=== PATIENT | male | born 1980 | race Caucasian/White ===

== ENCOUNTER 2025-04-17 09:51 | Outpatient (CLI) | payer OTHER, SELFPAY ==
--- OUTSIDE RECORDS SUMMARY | 2025-04-17 10:16 | XMS_ITS | Encounter Summary ---
Author Organization [facility] Healthcare Address [address] [place] [address] Care Team Providers Care Hydraulic Elevator Constructor Name Role Phone Antionette Valentine DO Primary Care Provider [phone] Reason for Visit * Diagnostic Imaging (Routine) - Closed Specialty Diagnoses / Procedures Referred By Kenny rhodes Referred To Contact Diagnoses Left shoulder pain, unspecified chronicity Procedures XR Shoulder Left 2 or More Views Ari Siddiqui PA [address] [place] [address] [address] [place] [address] Phone: tel: fax: Referral ID Status Reason Start Date Expiration Date Visits Re quested Visits Authorized [id number] Closed 06/25/2023 07/24/2024 1 1 Encounter Details Date Type Department Care Team (Late st Contact Info) Description 06/25/2023 7:46 AM CDT Hospital Encounter [facility] Medical Group Orthopedics and Sports Medicine [address] [facility] [address] [place] [id number] Social History Tobacco Use Types Packs/Day Years [...] on file Legal Sex Male 11:43 AM PRINCIPAL SECURITY ARCHITECT Gender Identity Male 10/07/2021 8:00 AM PRINCIPAL SECURITY ARCHITECT Sexual Orientation Straight 10/07/2021 8: 00 AM PRINCIPAL SECURITY ARCHITECT documented as of this encounter Functional Status * Audit-C Score Answer Date of Assessment Author 0 01/12/2025 3:56 PM CDT Kely Hendrickson MA * Question Answer Date of Assessment Author Q1: How often do you have a drink containing alcohol? Never 01/12/2025 3:56 PM CDT Talia Hendrickson MA Q2: How many drinks containing alcohol do you have on a typical day when you are drinking? Patient does not drink 01/12/2025 3:56 PM CDT Kely Hendrickson MA Q3: How often do you have six or more drinks on one occasion? Never 01/12/2025 3:56 PM CDT Talia Hendrickson MA documented as of this encounter Plan of [...] glenohumeral joint space is noted consistent with [id number] arthritic changes. A type 1 acromion is noted that a hypertrophic distal clavicle is noted to be impinging in the subacromial space. Ari ANDERSON IMG XR PROCEDURES Final Res ult documented in this encounter Visit Diagnoses Not on filedocumented in this encounter Care Teams Hydraulic Elevator Constructor Relationship Specialty [place] [address] [facility] [address] [place] [address] PCP - General Internal Medicine 06/27/21 documented as of this encounter
--- OUTSIDE RECORDS SUMMARY | 2025-04-17 10:16 | XMS_ITS | Clinical Summary ---
Author Organization [facility] Address [address] [place] [address] Phone Care Team Providers Care Pan Reclaim Processor Name Role Phone Antionette Valentine DO Primary Care Provider [phone] Allergies No known active allergies Social History Tobacco Use Types Packs/Day Years Used Date Smoking Tobacco: Never Assessed Sex and Gender Information Value Date Recorded Sex Assigned at Not on file Legal Sex Male 10:38 PM CDT Gender Identity Not on file Sexual Orientation Not on file Last Filed Vital Signs Vital Sign Reading Time Taken Comments Blood Pressure 152/87 07/05/2022 12:10 AM CDT Pulse 90 07/05/2022 12:10 AM CDT Temperature 36.3 C (97.3 F) 07/05/2022 12:10 AM CDT Respiratory Rate 17 07/05/2022 12:10 AM CDT Oxygen Saturation 98% 07/05/2022 12:10 AM CDT Inhaled Oxygen Concentration - - Weight 127 kg (280 lb) 07/04/2022 10:47 PM CDT Height 177.8 cm (5' 10) 07/04/2022 10:47 PM CDT Body Mass Index 40.18 07/04/2022 10:47 PM CDT Plan of Treatment Health Maintenance Due Date Last Done Comments Hepatitis C Virus (HCV) Screening 1979 Human Papillomavirus (HPV) Immunization (1 - Male 3-dose series) 1994 Hepatitis B Immunization (1 of 3 - 19+ 3-dose series) 1998 SARS-COV-2 Immunization ( season) 2024 06/23/2022, 06/29/2021, 12/22/2020, Additional history exists Cologuard 2024 Immunochemical Fecal Occult Blood 2024 Influenza Immunization (#1) 05/14/202506/13, 06/15/2021, 06/12/2021, Additional history exists Colonoscopy 05/14/2032 05/14/2022, 05/14/2022 Colorectal Cancer Screening 05/14/2032 Respiratory Syncytial Virus (RSV) Immunization (Adult) (1 - 1-dose 75+ series) 2054 DTaP/Tdap/Td Immunization Discontinued 2015, 08/03/2013, 01/19/2003, Additional history exists TdaP Immunization Completed 08/29/2016, 08/03/2013 Pneumococcal Immunization Combined Aged Out 09/23/2021, 06/06/2013 No longer eligibl e based on patient's age to complete this topic Meningococcal Immunization (ACWY) Aged Out No longer eligible based on patient's age to complete this topic Rotavirus Immunization Aged Out No lo nger eligible based on patient's age to complete this topic Insurance Care Teams Pan Reclaim Processor Relationship Specialty [place] [address] [address] PCP - General Internal Medicine 07/04/22
--- OUTSIDE RECORDS SUMMARY | 2025-04-17 10:16 | XMS_ITS | Clinical Summary ---
Author Organization [facility] D Address [address] [place] [address] Care Team Providers Care Teacher Private Name Role Phone Francisco Valentinesey Dexter FOSTER Primary Care Provider [phone] Allergies No known active allergies Medications lisinopril (PRINIVIL,ZEST RIL) 10 mg tablet Take 1 tablet (10 mg total) by mouth daily with dinner Active omeprazole (PriLOSEC) 20 mg capsule Take 1 capsule (20 mg total) by mouth daily with dinner Active escitalopram (LEXAPRO) 10 mg tablet Take 1 tablet (10 mg total) by mouth daily Active acetaminophen (TYLENOL) 500 mg tablet Take 2 tablets (1,000 mg total) by mouth every 6 hours as needed Active melatonin 5 mg tablet 1 tablet (5 mg total) Active multivitamin tablet Take 1 tablet by mouth 3 (three) times a day with meals Active albuterol HFA (PROVENTIL HFA,VENTOLIN HFA,PROAIR HFA) 90 mcg/actuation inhaler 0 Active atorvastatin (LIPITOR) 40 mg tablet Take 1 tablet (40 mg total) by mouth daily 0 Active benzonatate (TESSALON) 200 mg capsule Take 1 capsule (200 mg total) by mouth 3 (three) times a day as needed 0 Active blood glucose diagnostic strip Check blood sugar before meals as directed. Three times daily 2 Active blood-glucose meter kit Check blood sugar before meals as directed 2 Active lancets [facility] [place] Check blood sugar 3 times a day prior to meals as directed. 3 Active metFORMIN (GLUCOPHAGE) 500 mg tablet 0 Active Ozempic 1 mg/dose (4 mg/3 mL) pen injector injection INJECT 1MG SUBCUTANEOUSLY EVERY 7 DAYS Active cyclobenzaprin e (FLEXERIL) 10 mg tablet Take 1 tablet (10 mg total) by mouth nightly as needed for muscle spasms 30 tablet 1 5 Active Active Problems Problem Noted Date Diagnosed Date Type 2 diabetes mellitus wit h hyperglycemia, without long-term current use of insulin 09/03/2023 LUQ abdominal pain 12/30/2021 Bronchitis 10/04/2018 Assessment & Plan (10/04/2018 6:50 PM COPY COORDINATOR): Take your antibiotic as directed You may take a cough suppressant to calm your cough (dayquil, delsym, or nyquil) If your cough is productive or you have tight chest congestion with thick mucus- you can use a cough expectorant like Mucinex Benadryl/Zyrtec can be used to dry up a runny nose along with a nasal spray like azelastine or mometasone.. The use of Chlorpheniramine (antihistamine) plus pseudoephedrine (decongestant) has been proven to be helpful. Avoid environmental triggers and allergen Drink plenty of fluids and get plenty of rest Tylenol/Motrin for pain/fever If you are not better in the next 5 days, follow up w PCP. Essential hypertension 04/26/2018 Obstructive sleep apnea syndrome in adult 2015 Gastroesophageal reflux disease without esophagi tis 02/03/2016 Obesity 11/05/2015 Daytime somnolence 11/05/2015 Fever, unspecified 10/11/2012 Pure hypercholesterolemia 08/25/2011 Pain in joint, ankle and foot 08/18/2011 Chest pain, unspecified 07/16/2011 Acute pharyngitis 04/21/2007 Acute upper respiratory infection 11/18/2006 Disorder of skin or subcutaneous tissue 11/19/19 07 Encounters Date Type Department Care Team Description 03/01/2025 Results Follow-Up [facility] Medicine [address] [place] [id number] Ari Siddiqui PA MRI Cervical Spine WO Contrast 02/28/2025 5:49 PM CDT - 02/28/2025 11:59 PM CDT Hospital Encounter [facility] [address] [place] [address] Cervical radiculopathy Discharge Disposition: Discharge to home or self care 02/16/2025 3:45 PM CDT Office Visit [facility]opedics and [facility] Medicine [address] [facility] [address] [place] [address] Ari Siddiqui PA Cervical radiculopathy (Primary Dx) from Last 3 Months Surgical History Surgery Date Site/Laterality Comments TYMPANOSTOMY TUBE PLACEMENT tubes in ears HERNIA REPAIR Hernia repair VASECTOMY Medical History Medical History Date Comments Hypertension Migraine Neuropathy Back pain Family History Medical History Relation Name Comments Cancer Other 1 Family history of Cancer, unknown; Arthritis Other 2 Family history of Arthritis; Alcohol abuse Other 3 Family history of Alcoholism; Coronary artery disease Other 4 Fami ly history of Coronary artery disease; Mental illness Other 5 Family histor y of Mental illness; Stroke Other 6 Family history of Stroke; Relation Name Status Comments Other 1 Other 2 Other 3 Other 4 Other 5 Other 6 Social History Tobacco Use Types Packs/Day Years [...] on file Legal Sex Male 11:43 AM COPY COORDINATOR Gender Identity Male 10/07/2021 8:00 AM COPY COORDINATOR Sexual Orientation Straight 10/07/2021 8: 00 AM COPY COORDINATOR Obstetrics History Last Filed Vital Signs Vital Sign Reading Time Taken Comments Blood Pressure 134/89 02/16/2025 11:28 AM CDT Pulse 84 02/16/2025 11:28 AM CDT Temperature 37.4 C (99.4 F) 11/22/2018 3:48 PM CDT Respiratory Rate 20 11/22/2018 3:48 PM CDT Oxygen Saturation 95% 04/25/2019 3:12 PM CDT Inhaled Oxygen Concentration - - Weight 123.8 kg (273 lb) 02/16/2025 11:28 AM CDT Height 175.3 cm (5' 9) 02/16/2025 11:28 AM CDT Body Mass Index 40.32 02/16/2025 11:28 AM CDT Plan of Treatment Health Maintenance Due Date Last Done Comments Albumin Creatinine Ratio, Urine 1979 Colon Cancer Screening-Colonoscopy 1979 Depression Screening 1979 Hepatitis C Screening 1979 Dilated Eye Exam 1979 Foot Exam 1979 Lipid Panel 1979 Hepatitis B Screening 1997 Regular Well Visit/Exam 18-64 1997 HPV Vaccines (1 - 3-dose SCD M series) 2006 eGFR 11/17/2018 11/17/2017 Influenza Vaccine (#1) 2025 , 07/02/2020, 07/04/2019, Additional history exists Hemoglobin A1C 06/01/2025 11/29/2024, 11/04/2022, 09/30/2021, Additional history exists DTaP/Tdap/Td Vaccine (3 - Td or Tdap) 08/29/2026 08/29/2016, 08/03/2013, 01/19/2003, Additional history exists Pneumococcal vaccine <65 (3 of 3 - PCV20 or PCV21) 2029 09/23/2021, 06/06/2013, 06/06/2013 Procedures Procedure Name Priority Date/Time Associated Diagnosis Comments MRI CERVICAL SPINE WO CONTRAST Schedule Routine, Read Routine (OP Routine) 02/28/2025 6:30 PM CDT Cervical radiculopathy EGFR STAT 11/17/2017 4:00 PM COPY COORDINATOR from Last 3 Months or Most Recently Relevant to Health Maintenance Results * MRI Cervical Spine WO Contrast (02/28/2025 6:30 PM CDT) Anatomical Region Laterality Modality Spine N/A Magnetic Resonan ce 03/01/2025 10:4 1 AM CDT Narrative 03/01/2025 10:51 AM CDT EXAM DESCRIPTION: MRI CERVICAL SPINE WO CONTRAST REASON FOR STUDY: pain 2 month neck pain that travels down his left arm /no improvement with pt/ no trauma/ no injury TECHNIQUE: Sagittal and Axial imaging includes T1, T2, STIR and gradient echo sequences. COMPARISON: None available. FINDINGS: Multiple of the sequences are degraded by artifact despite multiple repeat attempts. ALIGNMENT: Straightening of the cervical lordosis. Mild retrolisthesis of C4 on C5. VERTEBRAE: No acute compression fracture in the cervical spine. If trauma is suspected then a CT has higher sensitivity for spinal fractures and can be obtained as clinically indicated. Multilevel endplate degenerative changes and marginal spur formation. DISCS: Diffuse disc desiccation and height loss. HARDWARE: None in the spine. CORD: No definite T2 hyperintense cord signal alteration is reproduced on 2 separate sequences. INDIVIDUAL LEVELS: C2-C3: No significant disc bulge or spinal canal stenosis. Uncovertebral spurring and facet arthropathy with mild neural foraminal narrowing. C3-C4: Posterior disc osteophyte complex and superimposed disc protrusion indents the ventral cord. Thickened ligamentum flavum. Moderate spinal canal stenosis. Uncovertebral spurring and facet arthropathy with moderate left and mild right neural foraminal narrowing. C4-C5: Central disc protrusion indents the ventral cord. Thickened ligamentum flavum. Moderate spinal canal stenosis. Uncovertebral spurring and facet arthropathy with [id number] neural foraminal narrowing. C5-C6: Posterior disc protrusion eccentric to the right indents the right ventral cord. Thickened ligamentum flavum. Nsmp-sx-ewvuqeqr right ventral spinal canal stenosis. Uncovertebral spurring and facet arthropathy with [id number]-jv-llmhshii right and moderate left neural foraminal narrowing. C6-C7: Posterior disc osteophyte complex and superimposed disc protrusion indents the ventral cord. Thickened ligamentum flavum. Moderate to severe spinal canal stenosis. Uncovertebral spurring and facet arthropathy with moderate to severe left and moderate right neural foraminal narrowing. C7-T1: No significant disc bulge or spinal canal stenosis. Uncovertebral spurring and facet arthropathy with mild neural foraminal narrowing. UPPER THORACIC: Incompletely imaged. No high-grade spinal canal stenosis. IMPRESSION: 1. Multilevel cervical disc degeneration with thickened ligamentum flavum, uncovertebral spurring and facet arthropathy as described. Spinal canal stenosis from C3-C4 through C6-C7 ranging up to moderate to severe. 2. Varying degrees of bilateral neural foraminal narrowing and additional findings as above. THIS IS AN ELECTRONICALLY VERIFIED FINAL REPORT 03/01/2025 10:51 AM - Electronically signed by Carlo Harrison D.O. AP: AP Report ID: [id number] Reading Location: [id number] Procedure Note Carlo Harrison, DO - 03/01/2025 EXAM DESCRIPTION: MRI CERVICAL SPINE WO CONTRAST REASON FOR STUDY: pain 2 month neck pain that travels down his left arm /no improvement with pt/no trauma/ no injury TECHNIQUE: Sagittal and Axial imaging includes T1, T2, STIR and gradientecho sequences. COMPARISON: None available. FINDINGS: Multiple of the sequences are degraded by artifact despite multiplerepeat attempts. ALIGNMENT: Straightening of the cervical lordosis. Mild retrolisthesisof C4 on C5. VERTEBRAE: No acute compression fracture in the cervical spine. Iftrauma is suspected then a CT has higher sensitivity for spinal fractures and canbe obtained as clinically indicated. Multilevel endplate degenerativechanges and marginal spur formation. DISCS: Diffuse disc desiccation and height loss. HARDWARE: None in the spine. CORD: No definite T2 hyperintense cord signal alteration is reproducedon 2 separate sequences. INDIVIDUAL LEVELS: C2-C3: No significant disc bulge or spinal canal stenosis. Uncovertebral spurring and facet arthropathy with mild neural foraminal narrowing. C3-C4: Posterior disc osteophyte complex and superimposed disc protrusion indents the ventral cord. Thickened ligamentum flavum. Moderate spinalcanal stenosis. Uncovertebral spurring and facet arthropathy with moderate leftand mild right neural foraminal narrowing. C4-C5: Central disc protrusion indents the ventral cord. Thickenedligamentum flavum. Moderate spinal canal stenosis. Uncovertebral spurring and facet arthropathy with [id number]-pt-tlmqktdw neural foraminal narrowing. C5-C6: Posterior disc protrusion eccentric to the right indents the right ventral cord. Thickened ligamentum flavum. Njve-pa-ohftlgai rightventral spinal canal stenosis. Uncovertebral spurring and facet arthropathy with xnqh-xn-nscgicne right and moderate left neural foraminal narrowing. C6-C7: Posterior disc osteophyte complex and superimposed disc protrusion indents the ventral cord. Thickened ligamentum flavum. Moderate tosevere spinal canal stenosis. Uncovertebral spurring and facet arthropathy with moderate to severe left and moderate right neural foraminal narrowing. C7-T1: No significant disc bulge or spinal canal stenosis. Uncovertebral spurring and facet arthropathy with mild neural foraminal narrowing. UPPER THORACIC: Incompletely imaged. No high-grade spinal canalstenosis. IMPRESSION: 1. Multilevel cervical disc degeneration with thickened ligamentumflavum, uncovertebral spurring and facet arthropathy as described. Spinal canal stenosis from C3-C4 through C6-C7 ranging up to moderate to severe. 2. Varying degrees of bilateral neural foraminal narrowing andadditional findings as above. THIS IS AN ELECTRONICALLY VERIFIED FINAL REPORT 03/01/2025 10:51 AM - Electronically signed by Carlo Harrison D.O. AP: AP Report ID: [id number] Reading Location: [place] [address] [facility] MRI PROCEDURES Final Re sult * eGFR (11/17/2017 4:00 PM COPY COORDINATOR) eGFR 100 mL/min/1.7 3 m2 [facility] Comment: Interpretive Data Reference Interval Normal >/= 90 mL/min/1.73m2 Mildly decreased* 60 - 89 mL/min/1.73m2 Mildly to moderately decreased 45 - 59 mL/min/1.73m2 Moderately to severely decreased 30 - 44 mL/min/1.73m2 Severely decreased 15 - 29 mL/min/1.73m2 Kidney Failure < 15 mL/min/1.73m2 *Relative to young adult level If -Polish multiply value by 1.16. Estimated glomerular filtration rate is determined by the CKD-EPI equation recommended by the National Kidney Foundation (KDIGO 2012 Clinical Practice Guideline for the Evaluation and Management of Chronic Kidney Disease. Kidney Intnl Suppl Sep 2012;3:1). The CKD-EPI equation should not be used for patients with unstable renal function and has not been validated in children and those over 70. Current interpretive data was last reviewed 2016. Blood specimen (specimen) 11/17/2017 4:00 PM COPY COORDINATOR 11/17/2017 4:10 PM COPY COORDINATOR Narrative [facility] - 11/17/2017 4:42 PM COPY COORDINATOR Jono Frye MD LAB BLOOD ORDERABLES nal Result [facility] [address] Department [place] [address] from Last 3 Months or Most Recently Relevant to Health Maintenance Insurance [employer] Care Teams Teacher Private Relationship Specialty [place] [id number] [phone] PCP - General Internal Medicine 06/27/21
--- OUTSIDE RECORDS SUMMARY | 2025-04-17 10:16 | XMS_ITS | Clinical Summary ---
Author Organization [facility] Address [address] [place] [address] Care Team Providers Care Insurance Professional Name Role Phone Antionette Valentine DO Primary Care Provider [phone] Allergies No known active allergies Medications fluticasone (FLONASE) 50 mcg/spray [place], Suspension Administer 2 Sprays in each nostril daily. 16 Gram 5 5 Active multivitamin (FLINTSTONES) Tablet, Chewable Take 1 Tablet by mouth daily. Active ascorbic acid, vitamin C, (VITAMIN C) 1,000 mg Tablet Take 1,000 mg by mouth daily. Active loratadine (CLARITIN) 10 mg tablet 1 Active albuterol sulfate 90 mcg/Actuation inhaler 1 Active omeprazole (PriLOSEC) 20 mg Capsule, Delayed Release(E.C.)Ind ications:Gastroe sophageal reflux disease without esophagitis TAKE 1 CAPSULE BY MOUTH TWICE A DAY 180 Capsule 1 2 Active Blood-Glucose Meter (Blood Glucose Monitoring) Kit Check blood sugar before meals as directed 1 Kit 2 Active lancetsIndicatio ns:Type 2 diabetes mellitus with hyperglycemia, without long-term current use of insulin ([facility]) Check blood sugar 3 times a day prior to meals as directed. 100 Each 10 3 Active acetaminophen (TYLENOL) 500 mg tablet Take 1,000 mg by mouth. 3 Active blood sugar diagnostic (Blood Glucose Test) Strip Check blood sugar before meals as directed. Three times daily 100 Strip 8 4 Active melatonin 5 mg Tablet 5 mg. 3 Active FIBER ORAL Take by mouth. Acti ve atorvastatin (LIPITOR) 40 mg tabletIndication s:Type 2 diabetes mellitus without complication, without long-term current use of insulin ([facility]) Take 1 tablet by mouth daily. 100 Tablet 3 5 Active lisinopriL (PRINIVIL) 40 mg tabletIndication s:Essential hypertension Take 1 tablet by mouth daily. 100 Tablet 3 5 Active semaglutide (Ozempic) 1 mg/dose (4 mg/3 mL) Pen Injector Inject 1 mg by subcutaneous injection every 7 days. 9 mL 3 5 Active metFORMIN (GLUCOPHAGE) 1,000 mg tabletIndication s:Type 2 diabetes mellitus without complication, without long-term current use of insulin (CMS/HCC) Take 1 tablet by mouth twice daily with meals. 200 Tablet 3 5 Active buPROPion HCL (WELLBUTRIN XL) 150 mg Extended Release 24 hour tablet Take 1 tablet by mouth daily in the morning. 90 Tablet 2 5 Active escitalopram oxalate (LEXAPRO) 20 mg tabletIndication s:Morbid obesity with body mass index of 40.0-49.9 (CMS/HCC) Take 1 tablet by mouth daily. 100 Tablet 3 5 Active Active Problems Problem Noted Date Diagnosed Date LUQ abdominal pain 12/30/2021 Family history of colon canc er requiring screening colonoscopy 12/30/2021 Tobacco use 09/23/2021 Bronchitis 10/04/2018 Overview (07/21/2022): Last Assessment & Plan: Take your antibiotic as directed You may [...] days, follow up w PCP. Essential hypertension 11/23/2016 Gastroesophageal reflux disease without esophagi tis 02/03/2016 Obstructive sleep apnea syndrome 02/03/2016 Fever, unspecified 10/11/2012 Pure hypercholesterolemia 08/25/2011 Pain in joint, ankle and foot 08/18/2011 Other malaise and fatigue 07/16/2011 Other and unspecified hyperlipidemia 07/16/2011 Chest pain, unspecified 07/16/2011 Acute pharyngitis 04/21/2007 Unspecified disorder of skin and subcutaneous ti ssue 11/18/2006 Acute upper respiratory infections of unspecifie d site 11/18/2006 Type 2 diabetes mellitus wit h hyperglycemia, without long-term current use of insulin Resolved Problems Problem Noted Date Diagnosed Date Resolved Date Severe obesity (BMI 35.0-39. 9) with comorbidity 11/12/2020 11/02/2023 Prediabetes 02/28/2018 09/23/2021 Morbid obesity with body mas s index of 40.0-49.9 11/22/2017 11/02/2023 Encounters Date Type Department Care Team Description 03/28/2025 External Device Data [facility] ABSTRACTION Provider, Abstract 03/27/2025 External Device Data [facility] ABSTRACTION Provider, Abstract 02/28/2025 External Device Data [facility] ABSTRACTION Provider, Abstract 02/27/2025 External Device Data [facility] ABSTRACTION Provider, Abstract 02/07/2025 [facility] [address] [address] Antionette Valentine A, DO Morbid obesity with body mass index of 40.0-49.9 ([facility]/HCC) from Last 3 Months Immunizations Immunization Administration Dates Next Due (ADACEL/BOOSTRIX)(10 YR UP) TDAP VACCINE, 0.5ML, IM 08/29/2016,08/03/2013 (HAVRIX/VAQTA)(12 MO-18 YRS) HEPATITIS A VACCINE 0.5 ML PED/ADOL 2 DOSE, IM 04/22/2000,10/02/1999 (PFIZER)(12 YR UP) COVID-19 VACCINE - EMERGENCY USE AUTHORIZATION, MRNA, [id number](PF) 30 MCG/0.3 ML IM SUSP 06/29/2021,12/22/2020,11/26/2020 (PNEUMOVAX 23)(50 YRS UP) PN EUMOCOCCAL POLYSACCHARIDE (PPV23) 0.5 ML, IM 09/23/2021 (PREVNAR 13)(6 WKS UP) PNEUM OCOCCAL CONJUGATE (PCV13) 0.5 ML, IM 06/06/2013 (TDVAX)(7 YRS UP) TETANUS AN D DIPHTHERIA TOXOIDS, ADSORBED (2 LF OF TETANUS TOXOID AND 2 LF OF DIPHTHERIA TOXOID), 0.5ML (PF), IM 01/19/2003,03/31/1993 INFLUENZA VACCINE QUADRIVALE NT 3 YR UP PF IM 06/12/2018 INFLUENZA VACCINE QUADRIVALE NT 6 MOS UP CELL DERIVED PF IM 07/04/2019 INFLUENZA VACCINE QUADRIVALE NT 6 MOS UP PF IM 07/02/2020 Influenza Seasonal Unspecifi ed Formulation IM 06/12/2021,08/29/2016,06/27/2015,06/08,06/06/2013 Rabies Vaccine, Unspecified Formulation 12/05/2003,11/07/2003 Family History Medical History Relation Name Comments Hypertension Brother Hypertension Father Prostate Cancer Father Other Maternal Cousin pre cancerou s polyps age 40 Colon Cancer Maternal Grandfather Colon Cancer Maternal Grandmother Healthy Mother Other Mother afib, hx valve replacement Relation Name Status Comments Brother Father Alive Maternal Cousin Maternal Grandfather Maternal Grandmother Mother Alive Social History Tobacco Use Types Packs/Day Years Used Date Smoking Tobacco: Former Cigarettes S tarted: 03/10/2012 Smokeless Tobacco: Never Alcohol Use Standard Drinks/Week Comments Yes 0 (1 standard drink = 0.6 oz pur e alcohol) monthly Sex and Gender Information Value Date Recorded Sex Assigned at Male 04/30/2023 6:35 PM CDT 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 Gender Identity Male 04/30/2023 6:35 PM CDT Sexual Orientation Straight 04/30/2023 6: 35 PM CDT Occupation Industry Job Start Date Job End Date Not on file Not on file Not on file Not on file Last Filed Vital Signs Vital Sign Reading Time Taken Comments Blood Pressure 124/80 11/29/2024 2:15 PM CDT Pulse 86 11/29/2024 2:15 PM CDT Temperature 36.2 C (97.1 F) 11/29/2024 2:15 PM CDT Respiratory Rate 18 05/14/2022 1:23 PM CDT Oxygen Saturation 97% 11/29/2024 2:15 PM CDT Inhaled Oxygen Concentration - - Weight 123.8 kg (273 lb) 11/29/2024 2:15 PM CDT Height 175.3 cm (5' 9) 11/29/2024 2:15 PM CDT Body Mass Index 40.32 11/29/2024 2:15 PM CDT Plan of Treatment Upcoming Encounters Date Type Department Care Team (Late st Contact Info) Description 07/02/2025 4:00 PM CDT Office Visit [facility] [id number] [address] [place] [id number] [address] Health Maintenance Due Date Last Done Comments HPV VACCINES (1 - Male 3-dos e series) 1994 DIABETES ANNUAL RETINAL EXAM 1997 HEPATITIS B VACCINES (1 of 3 - 19+ 3-dose series) 1998 COVID-19 Vaccine (2023-2 5 season) 2024 06/29/2021, 12/22/2020, 11/26/2020 FIT-DNA Q 3 years 2024 FIT/FOBT Q 1 year 2024 Flex Sig/CT Colonography Q 5 years 2024 INFLUENZA VACCINE (#1) 2025 , 07/02/2020, 07/04/2019, Additional history exists DIABETES HBA1C Q 6 MONTHS 06/01/20252024, 11/02/2023, 11/02/2023, Additional history exists DIABETES ANNUAL FOOT EXAM 11/29/20252024, 04/29/2023, 07/21/2022, Additional history exists DIABETES MICROALBUMIN ANNUAL SCREEN 11/29/2025 11/29/2024, 11/02/2023, 07/21/2022, Additional history exists DIABETES: A1C (Auto Order) 11/29/202511/29, 11/02/2023, 11/02/2023, Additional history exists LDL CHOLESTEROL ANNUAL 11/29/2025 , 04/29/2023, 07/21/2022, Additional history exists DTAP/TDAP/TD VACCINES (4 - T d or Tdap) 08/29/2026 08/29/2016, 08/03/2013, 01/19/2003, Additional history exists COLORECTAL SCREENING 05/14/2027 05/14/2022, 05/14/2022, 05/14/2022, Additional history exists Colorectal Cancer Screening 05/14/2027 Preventative Visit- Commercial Completed 0 11/29/2024, 04/29/2023, 04/29/2023, Additional history exists Procedures Procedure Name Priority Date/Time Associated Diagnosis Comments LIPID PANEL Routine 11/29/2024 3:00 PM CDT Encounter for routine adult health examination without abnormal findings Type 2 diabetes mellitus with hyperglycemia, without long-term current use of insulin (CMS/HCC) Pure hypercholesterolemia Essential hypertension Gastroesophageal reflux disease without esophagitis Obstructive sleep apnea syndrome HEMOGLOBIN A1C Routine 11/29/2024 3:00 PM CDT Encounter for routine adult health examination without abnormal findings Type 2 diabetes mellitus with hyperglycemia, without long-term current use of insulin (CMS/HCC) Pure hypercholesterolemia Essential hypertension Gastroesophageal reflux disease without esophagitis Obstructive sleep apnea syndrome MICROALBUMIN/CREATI NINE RATIO, RANDOM UR Routine 11/29/2024 2:56 PM CDT Encounter for routine adult health examination without abnormal findings Type 2 diabetes mellitus with hyperglycemia, without long-term current use of insulin (CMS/HCC) Pure hypercholesterolemia Essential hypertension Gastroesophageal reflux disease without esophagitis Obstructive sleep apnea syndrome COLONOSCOPY REPORT 05/14/2022 1: 06 PM CDT from Last 3 Months or Most Recently Relevant to Health Maintenance Results * (ABNORMAL) HEMOGLOBIN A1C (11/29/2024 3:00 PM CDT) HEMOGLOBIN A1C 6.0(H) <5.7 % of total Hgb [facility] Comment: For someone without known diabetes, a hemoglobin A1c value between 5.7% and 6.4% is consistent with prediabetes and should be confirmed with a follow-up test. For someone with known diabetes, a value <7% indicates that their diabetes is well controlled. A1c targets should be individualized based on duration of diabetes, age, comorbid conditions, and other considerations. This assay result is consistent with an increased risk of diabetes. Currently, no consensus exists regarding use of hemoglobin A1c for diagnosis of diabetes for children. ESTIMATED AVERAGE GLUCOSE (MG/DL) 126 mg/dL [facility] ESTIMATED AVERAGE GLUCOSE (MMOL/L) 7.0 mmol/L [facility] Comment: Test Performed at: [place] [address] [address] [id number] RadhaTaylorfredy Adore Blood 11/29/2024 3:00 PM CDT 11/29/2024 3:00 PM CDT us Jesus Barraza NP CHEMISTRY ORDERABLES Final Resu lt [facility] [phone] [place] [address] [address] [phone] * (ABNORMAL) LIPID PANEL (11/29/2024 3:00 PM CDT) [facility] CHOLESTEROL 145 <200 mg/dL [facility] HDL 53 > OR = 40 mg/dL [facility] TRIGLYCERIDE 179(H) <150 mg/dL [facility] LDL CALCULATED 66 mg/dL (calc) [facility] Comment: Reference range: <100 Desirable range <100 mg/dL for primary prevention; <70 mg/dL for patients with CHD or diabetic patients with > or = 2 CHD risk factors. LDL-C is now calculated using the Cherie calculation, which is a validated novel method providing better accuracy than the Friedewald equation in the estimation of LDL-C. Donell FERNANDEZ et al. MAJOR. 2013;310(19): 1213-7646 (http://education.mDialog/faq/DLR167) CHOL/HDL RATIO 2.7 <5.0 (calc) [facility] NON-HDL CHOLESTEROL 92 <130 mg/dL (calc) [facility] Comment: For patients with diabetes plus 1 major ASCVD risk factor, treating to a non-HDL-C goal of <100 mg/dL (LDL-C of <70 mg/dL) is considered a therapeutic option. Test Performed at: [facility] [address] [place] [address] Demetrius Flower Blood 11/29/2024 3:00 PM CDT 11/29/2024 3:00 PM CDT Jesus Barraza NP CHEMISTRY ORDERABLES Final Resu lt [facility] [phone] [place] [address] [place] [address] * MICROALBUMIN/CREATININE RATIO, RANDOM UR (11/29/2024 2:56 PM CDT) Creatinine, Urine 76 20 - 320 mg/dL [facility] MICROALBUMIN, URINE 0.2 See Note: mg/dL [facility] Comment: Reference Range: Reference Range Not established MICROALBUMIN/CREAT RATIO, UR 3 <30 mg/g creat [facility] Comment: The ADA defines abnormalities in albumin excretion as follows: Albuminuria Category Result (mg/g creatinine) Normal to Mildly increased <30 Moderately increased 30-299 Severely increased > OR = 300 The ADA recommends that at least two of three specimens collected within a 3-6 month period be abnormal before considering a patient to be within a diagnostic category. Test Performed at: [facility] [address] [place] [address] Demetrius Flower MD Urine URINE SPECIMEN OBTAINED BY CLEAN CATCH PROCEDURE / Unknown 11/29/2024 2:56 PM CDT 11/29/2024 2:59 PM CDT Jesus Madi BUSINESS COORDINATOR URINE ORDERABLES Final Result [facility] [phone] [facility] [address] [address] [facility] [place] [phone] * COLONOSCOPY REPORT (05/14/2022 1:06 PM CDT) Narrative Procedure Note Veronica Gold MD - 05/14/2022 1:05 PM CDT [facility] Endoscopy Patient Name: Chadd Patrick Procedure Date: 05/14/2022 Date of : 1980 Attending MD: Veronica Gold MD, Procedure: Colonoscopy Indications: Colon cancer screening in patient at increased risk: Family history of colorectal cancer in multiple 2nd degree relatives Providers: Veronica Gold MD Referring MD: Antionette Valentine MD Medicines: Monitored Anesthesia Care Complications: No immediate complications. Procedure: Informed consent was obtained for the procedure, including moderate sedation after risks were discussed. Based on the pre-procedure assessment, including review of the patient's medical history, medications, allergies, and review of systems, the patient was deemed to be an appropriate candidate for sedation. A timeout was performed. Continuous ECG monitoring, pulse oximetry, blood pressure monitoring, and direct observation were performed. The Colonoscope was introduced through the anus and advanced to the terminal ileum. The colonoscopy was performed without difficulty. The patient tolerated the procedure well. The quality of the bowel preparation was good. The quality of the bowel preparation was evaluated using the BBPS (Luke Bowel Preparation Scale) with scores of: Right Colon = 2, Transverse Colon = 3 and Left Colon = 3. The total BBPS score equals 8. The quality of the bowel preparation was good. The terminal ileum, ileocecal valve, appendiceal orifice, and rectum were photographed. Estimated Blood Loss: Estimated blood loss: none. Findings: The perianal and digital rectal examinations were normal. The terminal ileum appeared normal. A 6 mm polyp was found in the ascending colon. The polyp was sessile. The polyp was removed with a cold snare. Resection and retrieval were complete. External hemorrhoids were found during retroflexion. The hemorrhoids were small. Impression: - The examined portion of the ileum was normal. - One 6 mm polyp in the ascending colon, removed with a cold snare. Resected and retrieved. - External hemorrhoids. Recommendation: - Await pathology results. - Repeat colonoscopy in 5-10 years for surveillance based on pathology results. Veronica Gold MD 05/14/2022 1:05:05 PM This report has been signed electronically. Number of Addenda: [address]; [place] [address] Veronica Gold MD GI PROCEDURE ORDERABLES Final Re sult from Last 3 Months or Most Recently Relevant to Health Maintenance Insurance [employer] Commercial Care Teams Insurance Professional Relationship Specialty Start [place] [address] [facility] [address] [place] [phone] PCP - General Internal Medicine 03/19/21
--- OUTSIDE RECORDS SUMMARY | 2025-04-17 10:16 | XMS_ITS | Encounter Summary ---
Author Organization [facility] Healthcare Address [address] [place] [address] Care Team Providers Care Sign Erector And Repairer Name Role Phone Antionette Valentine Primary Care Provider [phone] Encounter Details Date Type Department Care Team (Late st Contact Info) Description 03/01/2025 Results Follow-Up [facility] Orthopedic and Sports Medicine [address] [place] [phone] Ari Siddiqui PA [address] [place] [address] DR MORRIS [address] [place] [phone] MRI Cervical Spine WO Contrast Social History Tobacco Use Types Packs/Day Years [...] on file 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
--- OUTSIDE RECORDS SUMMARY | 2025-04-17 10:16 | XMS_ITS | Clinical Summary ---
Author Organization [facility] Address [address] [place] [address] Care Team Providers Care Oracle Bpm Consultant Name Role Phone Unavailable Primary Care Provider Unavailabl e Source Comments [facility],non-owned Affiliates and Associated Physician Practices is amultiple site organization consisting of ambulatory clinics and hospital sitesin [place], [place], [place] and [place]. This disclosure is being madepursuant to the Care Everywhere program and may not contain all informatio navailable regarding this patient. Last updated 18.[facility] Allergies No known active allergies Medications * Be aware that medications may not be up to date on this document. Alwaysverify current medications with the patient. omeprazole (PRILOSEC) 20 MG capsule Take 20 mg by mouth once daily Active lisinopril (PRINIVIL; ZESTRIL) 10 MG tablet Take 10 mg by mouth once daily Active escitalopram (LEXAPRO) 10 MG tablet Take 10 mg by mouth once daily Active multivitamin daily tablet Take 1 tablet by mouth daily with food Active FIBER PO Active benzonatate (TESSALON) 200 MG capsule Take 1 capsule by mouth 3 times daily as needed for Cough 30 capsule 0 Active albuterol HFA (PROVENTIL;VENT WILLIS;PROAIR) 108 (90 Base) MCG/ACT inhaler Inhale 2 puffs by mouth every 6 hours as needed for Shortness of Breath, Wheezing or Cough 1 Inhaler 0 Active Immunizations Immunization Administration Dates Next Due FLU VACCINE QUAD IIV4 PF ID 08/29/2016 TDAP (7yrs+) 08/29/2016 Social History Tobacco Use Types Packs/Day Years Used Date Smoking Tobacco: Former Smokeless Tobacco: Never Sex and Gender Information Value Date Recorded Sex Assigned at Not on file 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 Gender Identity Not on file Sexual Orientation Not on file Last Filed Vital Signs Vital Sign Reading Time Taken Comments Blood Pressure 122/80 11/08/2019 9:14 AM HEALTH AND WELLNESS COACH Pulse 81 11/08/2019 9:14 AM HEALTH AND WELLNESS COACH Temperature 36.4 C (97.5 F) 11/08/2019 9:14 AM HEALTH AND WELLNESS COACH Respiratory Rate 16 11/08/2019 9:14 AM HEALTH AND WELLNESS COACH Oxygen Saturation 97% 11/08/2019 9:14 AM HEALTH AND WELLNESS COACH Inhaled Oxygen Concentration - - Weight 127 kg (280 lb) 11/08/2019 9:14 AM HEALTH AND WELLNESS COACH Height 180.3 cm (5' 11) 11/08/2019 9:14 AM HEALTH AND WELLNESS COACH Body Mass Index 39.05 11/08/2019 9:14 AM HEALTH AND WELLNESS COACH Plan of Treatment Health Maintenance Due Date Last Done Comments COLOGUARD (AGES 45-75) - COL ON CA SCREENING 1980 COLON MONITORING 1979 COLONOSCOPY - COLON CA SCREENING 1979 CT COLONOGRAPHY - COLON CA SCREENING 1979 Colorectal Cancer Screening 1979 FIT - COLON CA SCREENING 1979 FLEX SIG - COLON CA SCREENING 1979 LIPID TESTING 1979 HIV SCREENING 1994 HEPATITIS C SCREENING 08/06/1997 HEPATITIS B VACCINE (1 of 3 - 19+ 3-dose series) 1998 HPV VACCINE (1 - 3-dose SCDM series) 2006 SCREENING FOR DIABETES 11/08/2019 COVID-19 VACCINE ( - 2023-2 5 season) 2024 DEPRESSION SCREENING 09/13/2024 INFLUENZA VACCINE (#1) 2025 08/29/2016 DTAP/TDAP/TD VACCINES (2 - T d or Tdap) 08/29/2026 08/29/2016 ZOSTER VACCINE (1 of 2) 2029 HIB VACCINE Aged Out No longer eligi ble based on patient's age to complete this topic MENINGOCOCCAL (Group B) VACC INE SHARED DECISION-MAKING Aged Out No longer eligibl e based on patient's age to complete this topic MENINGOCOCCAL GROUPS A/C/Y/W VACCINE Aged Out No longer eligible b ased on patient's age to complete this topic PNEUMOCOCCAL VACCINE Aged Out No long er eligible based on patient's age to complete this topic Insurance [facility]
--- OUTSIDE RECORDS SUMMARY | 2025-04-17 10:16 | XMS_ITS | Referral Summary ---
Author Organization [facility] D Address [address] [place] [address] Care Team Providers Care Mechanic Helper Name Role Phone Antionette Valentine DO Primary Care Provider [phone] Encounters Date Type Department Care Team Description 03/01/2025 Results Follow-Up [facility] Orthopedic and Sports Medicine [address] [place] [phone] Ari Siddiqui PA MRI Cervical Spine WO Contrast 02/28/2025 5:49 PM CDT - 02/28/2025 11:59 PM CDT Hospital Encounter [facility] [address] [place] [address] Cervical radiculopathy Discharge Disposition: Discharge to home or self care 02/16/2025 3:45 PM CDT Office Visit [facility] Orthopedics and Sports Medicine [address] [facility] [address] [place] [phone] Ari Siddiqui PA Cervical radiculopathy (Primary Dx) from Last 3 Months Allergies No known active allergies Medications lisinopril [...] before meals as directed 2 Active lancets misc Check blood sugar 3 times a day [...] 10/04/2018 Assessment & Plan (10/04/2018 6:50 PM CHIEF PILOT): Take your antibiotic as directed You may [...] of skin or subcutaneous tissue 11/19/19 07 Social History Tobacco Use Types Packs/Day Years [...] on file Legal Sex Male 11:43 AM CHIEF PILOT Gender Identity Male 10/07/2021 8:00 AM CHIEF PILOT Sexual Orientation Straight 10/07/2021 8: 00 AM CHIEF PILOT Last Filed Vital Signs Vital Sign Reading [...] 02/16/2025 11:28 AM CDT Plan of Treatment Not on file Procedures Procedure Name Priority Date/Time Associated Diagnosis Comments MRI CERVICAL SPINE WO CONTRAST Schedule Routine, Read Routine (OP Routine) 02/28/2025 6:30 PM CDT Cervical radiculopathy EGFR STAT 11/17/2017 4:00 PM CHIEF PILOT from Last 3 Months or Most Recently [...] stenosis. Uncovertebral spurring and facet arthropathy with dvme-ep-zksqzfrb neural foraminal narrowing. C5-C6: Posterior disc protrusion eccentric to the right indents the right ventral cord. Thickened ligamentum flavum. Vwjq-eu-noflsryw right ventral spinal canal stenosis. Uncovertebral spurring and facet arthropathy with zvva-xi-tmdlpuwe right and moderate left neural foraminal narrowing. [...] Carlo Harrison D.O. AP: AP Report ID: [id number] Reading Location: [place] [address] Procedure Note Carlo Harrison, DO - 03/01/2025 [...] stenosis. Uncovertebral spurring and facet arthropathy with fvzy-gr-nogzvfha neural foraminal narrowing. C5-C6: Posterior disc protrusion eccentric to the right indents the right ventral cord. Thickened ligamentum flavum. Qrcj-az-atornhbb rightventral spinal canal stenosis. Uncovertebral spurring and facet arthropathy with hwqm-iy-zbhmsmaq right and moderate left neural foraminal narrowing. [...] Electronically signed by Carlo Harrison D.O. AP: LUKE Report ID: [id number] Reading Location: [place] [address] us Ari ANDERSON IMSong MRI PROCEDURES Final Re sult * eGFR (11/17/2017 4:00 PM CHIEF PILOT) eGFR 100 mL/min/1.7 3 m2 [facility] Comment: Interpretive Data Reference Interval Normal >/= 90 mL/min/1.73m2 Mildly decreased* 60 - 89 mL/min/1.73m2 Mildly to moderately decreased 45 - 59 mL/min/1.73m2 Moderately to severely decreased 30 - 44 mL/min/1.73m2 Severely decreased 15 - 29 mL/min/1.73m2 Kidney Failure < 15 mL/min/1.73m2 *Relative to young adult level If -Nigerian multiply value by 1.16. Estimated glomerular filtration [...] 2016. Blood specimen (specimen) 11/17/2017 4:00 PM CHIEF PILOT 11/17/2017 4:10 PM CHIEF PILOT Narrative [facility] - 11/17/2017 4:42 PM CHIEF PILOT Jono Frye MD LAB BLOOD ORDERABLES nal Result [facility] [address] Department [place] [address] from Last 3 Months or Most Recently Relevant to Health Maintenance Insurance [facility] CIGNA CIGNA Care Teams Mechanic Helper Relationship Specialty Start [place] [id number] [phone] PCP - General Internal Medicine 06/27/21
[2025-04-17 11:18] LABS: Anion Gap 7 mmol/L (4-12); Blood Urea Nitrogen 18 mg/dL (9-20); Calcium 9.6 mg/dL (8.4-10.2); Carbon Dioxide 29 mmol/L (22-30); Chloride 98 mmol/L (98-107); Estimated Glomerular Filt Rate > 60; Glucose 99 mg/dL (65-110); Potassium 4.7 mmol/L (3.4-5.0); Sodium 134 mmol/L (137-145)
== END 2025-04-17 09:52 | disposition home or self-care (01) ==
LOC: ANHLAB 09:53
PROVIDERS: Visit Provider Anesthesiology
DX: Z01.818 Encounter for other preprocedural examination (principal); E11.9 Type 2 diabetes mellitus without complications
CPT/HCPCS: 36415; 80048

== ENCOUNTER 2025-04-25 02:00 | Day surgery (SDC) | payer OTHER, SELFPAY ==
[2025-04-16 12:36] VITALS: BMI 39.7
--- NOTE | 2025-04-16 12:37 | PC.NURSE ---
Report to the Outpatient Waiting Room, entrance under the green pavilion located off [facility], at time _1115_ on date _[id number]_. Planned Procedure Time: _115pm_.? Time changes happen often and if your time is changed the preop area will call you the afternoon before. - You and your visitor will be asked to self-screen and do not enter if you have any COVID symptoms. Please call surgeon if you need to reschedule. - A mask is optional within the hospital at this time. May have clear liquids (water, carbonated beverages, clear teas, apple juice) until 515am prior to surgery with a maximum of 20 ounces. Nothing to drink after 515am. - No food from midnight until time of surgery and no smoking, or chewing tobacco (or any form of nicotine). No chewing gum, candy or mints. Take only the following medications with a SIP of water on the morning of surgery: __Escitalopram and Bupropion DO NOT STOP ANY OF YOUR OTHER PRESCRIPTION MEDICATIONS PRIOR TO SURGERY EXCEPT THE FOLLOWING Hold all vitamins and supplements for 3 days per anesthesiologist. Medications to discontinue per physician Date to take last ktdc__[id number]____ Please no make-up, nail ecuadorean, hairspray, perfume, deodorant, or body powder the day of surgery.? No jewelry (including any body piercings) or valuables the day of surgery, leave them at home.? Please take a shower or bath the night before, or the morning of, surgery with an antibacterial soap.? Wear comfortable, loose fitting clothing.? - Jewelry must be removed prior to entering the operating room.? Rings and piercings that are not removed may be cut off. - The hospital will not accept responsibility for valuables.? - Please leave all valuables, including medications, at home the day of surgery. If you are going home after surgery, a licensed regional tanker truck driver must drive you home.? - NO public transportation without another adult if you receive anesthesia. - We recommend that an adult stay with you for 24 hours following discharge. - We also recommend that you do not drive, make important decision, drink alcoholic beverages, or take any drugs that were not prescribed by your health care provider for at least 24 hours after your discharge time. Follow any additional instructions given to you from your surgeon. Telephone instructions given to __Matt__and asked if any additional questions and then verbalized understanding. Patient advised to call surgeon office or pre surgery nurse liaison [phone] if any additional questions.
--- NOTE | 2025-04-24 14:43 | P.PNAN_ITS ---
Anes - Initial Pre Proc Eval Procedure: Operation Date: 04/25/25 13:15 Proposed Procedures p Right Endoscopic Carpal Tunnel Release, Possible Open, Right Cubital Tunnel Release - Uriel Javed MD Date/Time: 04/25/25 14:43 Surgeon: Uriel Javed MD Pre Op Diagnosis: right carpal and cubital tunnel syndrome Patient Data Age: 44 Gender: M Height: 1.77 m Weight: 124 kg Allergies Allergy/AdvReac Type Severity Reaction Status Date / Time No Known Allergies Allergy Verified 04/25/25 11:36 Home Medications ?Medication ?Instructions ?Recorded ?Confirmed ?Type acetaminophen 500 mg tablet 1,000 mg PO Q6H PRN pain 04/16/25 04/16/25 History atorvastatin 40 mg tablet 40 mg PO DAILY 04/16/25 04/16/25 History bupropion HCl 150 mg 24 hr tablet, 150 mg PO Q48H 04/16/25 04/16/25 History extended release escitalopram oxalate 20 mg tablet 20 mg PO DAILY 04/16/25 04/16/25 History ibuprofen 200 mg tablet (Advil) 400 mg PO Q6H PRN pain 04/16/25 04/16/25 History lisinopril 40 mg tablet 40 mg PO DAILY 04/16/25 04/16/25 History melatonin 3 mg capsule 3 mg PO HS PRN sleep 04/16/25 04/16/25 History metformin 1,000 mg tablet 1,000 mg PO BID 04/16/25 04/16/25 History multivitamin (Daily Multi-Vitamin 1 tablet PO DAILY 04/16/25 04/25/25 History tablet) omeprazole 20 mg capsule,delayed 20 mg PO DAILY 04/16/25 04/16/25 History release psyllium husk 0.4 gram capsule 0.4 g PO DAILY 04/16/25 04/16/25 History (Daily Fiber) semaglutide 1 mg/dose (4 mg/3 mL) 1 mg subcut WEEKLY 04/16/25 04/16/25 History subcutaneous pen injector (Ozempic) tramadol 50 mg tablet 50 mg PO Q6H PRN pain #12 tabs 04/25/25 Rx Patient hx anesthesia problems: none Family hx anesthesia problems: none Results Review: All pre-operative results and documents have been reviewed as part of the pre- operative evaluation. PMFSH Past Medical History Medical History (Updated 04/24/25 @ 14:44 by Ricky Salvador DO) Depression Diabetes type 2, controlled GERD (gastroesophageal reflux disease) SID (obstructive sleep apnea) Social History Social History Years smoked: 15 Smoking status: Former smoker Tobacco type: cigarettes Smoking end date: 02/15/24 Alcohol intake: current Living arrangements: with family Spiritual care concerns: No Anes - Eval Final PreProcedure Day of Procedure 04/25/25 14:43 Patient weight: obese Heart: regular rate and rhythm Lungs: clear to auscultation Airway: Mallampati scale class II Neurological: alert and oriented Last oral intake: >/= 8 hours ASA classification: III Emergent: no Anesthetic plan: proceed Anesthesia type and monitoring: general GIVS and standard monitoring Results Review: All pre-operative results and documents have been reviewed as part of the pre- operative evaluation. Informed Consent: The patient's anesthetic plan and its attendant risks and benefits were discussed with the patient/family/POA. Questions were solicited and answers provided to the satisfaction of the patient/family/POA.
--- OUTSIDE RECORDS SUMMARY | 2025-04-25 02:03 | XMS_ITS | Continuity of Care Document ---
Author Organization [facility] Address [address] [facility] [address] [place] [address] Phone Care Team Providers Care Court Worker Name Role Phone Natalya Mejia PTA Unavailable Unavailable Procedures Procedure Date Therapeutic Activities Therapeutic Exercise Manual Therapy Therapeutic Activities Therapeutic Exercise Manual Therapy Progress Note Therapeutic Activities Therapeutic Exercise Manual Therapy Waive Cancel or No Show - No Charge Therapeutic Activities Therapeutic Exercise Manual Therapy Hot or Cold Pack Therapeutic Activities Therapeutic Exercise Manual Therapy Hot or Cold Pack Therapeutic Activities Therapeutic Exercise Manual Therapy Hot or Cold Pack Mechanical Traction Therapeutic Activities Therapeutic Exercise Manual Therapy Hot or Cold Pack Mechanical Traction Progress Note Therapeutic Activities Therapeutic Exercise Manual Therapy Hot or Cold Pack Therapeutic Activities Therapeutic Exercise Manual Therapy Hot or Cold Pack Therapeutic Activities Therapeutic Exercise Hot or Cold Pack Manual Therapy Mechanical Traction Therapeutic Activities Neuromuscular Re-Ed Therapeutic Exercise Manual Therapy Hot or Cold Pack Mechanical Traction Therapeutic Activities Neuromuscular Re-Ed Therapeutic Exercise Manual Therapy Therapeutic Activities Neuromuscular Re-Ed Therapeutic Exercise Manual Therapy Hot or Cold Pack Mechanical Traction Progress Note Therapeutic Activities Neuromuscular Re-Ed Therapeutic Exercise Hot or Cold Pack Mechanical Traction Therapeutic Activities Neuromuscular Re-Ed Therapeutic Exercise Manual Therapy Hot or Cold Pack Therapeutic Activities Neuromuscular Re-Ed Therapeutic Exercise Manual Therapy Hot or Cold Pack Mechanical Traction Therapeutic Activities Neuromuscular Re-Ed Therapeutic Exercise Hot or Cold Pack Mechanical Traction Therapeutic Activities Neuromuscular Re-Ed Therapeutic Exercise Manual Therapy Mechanical Traction Therapeutic Activities Neuromuscular Re-Ed Therapeutic Exercise Manual Therapy Mechanical Traction PT Evaluation Moderate Complexity Therapeutic Activities Neuromuscular Re-Ed Manual Therapy Mechanical Traction Progress Note Neuromuscular Re-Ed Therapeutic Activities Therapeutic Exercise Hot or Cold Pack Therapeutic Activities Neuromuscular Re-Ed Therapeutic Exercise Manual Therapy Hot or Cold Pack Therapeutic Activities Neuromuscular Re-Ed Therapeutic Exercise Manual Therapy Hot or Cold Pack Therapeutic Activities Neuromuscular Re-Ed Therapeutic Exercise Manual Therapy Hot or Cold Pack Therapeutic Activities Neuromuscular Re-Ed Hot or Cold Pack Therapeutic Exercise Progress Note Neuromuscular Re-Ed Therapeutic Activities Manual Therapy Therapeutic Exercise Hot or Cold Pack Therapeutic Activities Neuromuscular Re-Ed Therapeutic Exercise Manual Therapy Hot or Cold Pack Therapeutic Activities Neuromuscular Re-Ed Therapeutic Exercise Manual Therapy Hot or Cold Pack Therapeutic Activities Neuromuscular Re-Ed Therapeutic Exercise Manual Therapy Hot or Cold Pack Progress Note Therapeutic Activities Neuromuscular Re-Ed Therapeutic Exercise Manual Therapy Hot or Cold Pack Therapeutic Activities Neuromuscular Re-Ed Therapeutic Exercise Manual Therapy Therapeutic Activities Neuromuscular Re-Ed Therapeutic Exercise Manual Therapy Hot or Cold Pack Therapeutic Activities Neuromuscular Re-Ed Therapeutic Exercise Manual Therapy Hot or Cold Pack Therapeutic Activities Neuromuscular Re-Ed Therapeutic Exercise Manual Therapy Hot or Cold Pack Therapeutic Activities Neuromuscular Re-Ed Therapeutic Exercise Manual Therapy Therapeutic Activities Neuromuscular Re-Ed Therapeutic Exercise Manual Therapy Hot or Cold Pack Therapeutic Activities Neuromuscular Re-Ed Therapeutic Exercise Hot or Cold Pack PT Evaluation Moderate Complexity Therapeutic Activities Neuromuscular Re-Ed THERAPEUTIC EXERCISES NEUROMUSCULAR RE-ED MANUAL THERAPY FUNC ACTIVITY THERAPEUTIC EXERCISES NEUROMUSCULAR RE-ED MANUAL THERAPY FUNC ACTIVITY THERAPEUTIC EXERCISES NEUROMUSCULAR RE-ED MANUAL THERAPY FUNC ACTIVITY THERAPEUTIC EXERCISES NEUROMUSCULAR RE-ED MANUAL THERAPY FUNC ACTIVITY THERAPEUTIC EXERCISES NEUROMUSCULAR RE-ED MANUAL THERAPY FUNC ACTIVITY THERAPEUTIC EXERCISES NEUROMUSCULAR RE-ED MANUAL THERAPY FUNC ACTIVITY THERAPEUTIC EXERCISES NEUROMUSCULAR RE-ED MANUAL THERAPY FUNC ACTIVITY THERAPEUTIC EXERCISES NEUROMUSCULAR RE-ED MANUAL THERAPY FUNC ACTIVITY PT EVALUATION Advance Directives Directive Yes / No Effective Date File Name No Information Encounters Encounter Description Practice Location Reason(s) For Visit Diagnoses Date Provider Providers Copied on Encounter [facility], [place], [place], [id number], tel:[phone] Crum Lynne No Information Roberto Caini. . Referring Provider: Ari Siddiqui, [address] [place] [address] [address], [place], [address]. tel:[phone] [place] [address] [address], [place], [place], [id number], tel:[phone] Crum Lynne No Information Roberto Hoang. . Referring Provider: Ari Siddiqui [address] [place] [address] [address], [place], [address]. tel:[phone] [place] [address] [address], [place], [place], [address], [place] tel:[phone] Crum Lynne No Information Roberto Caini. . Referring Provider: Ari Siddiqui, [address] [place] [address] [address], [place], [address]. tel:[phone] [place], [place] [address] [address], [place], [place], [address], [place] tel:[phone] Bebo No Information Negar Sheldon. . Referring Provider: Physician Jessica. [facility], [place], [place], [address], tel:[phone] Crum Lynne No Information Erasmo Gant. . Referring Provider: Ari Siddiqui [address] [place] [address] [address], [place], [address]. tel:[phone] [place] [address] [address], [place], [place], [address], [place] tel:[phone] Crum Lynne No Information Garrels Alfreda. . Referring Provider: Ari Siddiqui, [address] [facility] [address], [place], [address]. tel:[phone] [place] [address], [address], [place], [place], [address], [place] tel:[phone] Crum Lynne No Information Garrels Alfreda. . Referring Provider: Ari Siddiqui, [address] [facility] [address], [place], [address]. tel:[phone] [place] [address], [address], [place], [place], [address], [place] tel:[phone] Beb[place] No Information Hisky Pito. . Referring Provider: Ari Siddiqui, [address] [facility] [address], [place], [address]. tel:[phone] [place] [address], [address], [place], [address], [place] tel:[phone] Crum Lynne No Information Hisky Pito. . Referring Provider: Ari Siddiqui, [address] [facility] [address], [place], [address]. tel:[phone] [place], [place] [address] [address], [place], [place], [address], [place] tel:[phone] [place]eb[place] No Information Garrels Alfreda. . Referring Provider: Ari Siddiqui, [address] [facility] [address], [place], [address]. tel:[phone] [place] [address] [address], [place], [place], [address], [place] tel:[phone] Bebo No Information Garrels Alfreda. . Referring Provider: Ari Siddiqui, [address] [facility] [address], [place], [address]. tel:[phone] [place] [address], [address], [place], [place], [address], [place] tel:[phone] Crum Lynne No Information Erasmo Gant. . Referring Provider: Ari Siddiuqi, [address] [place] [address] [address], [place], [address]. tel:[phone] [place] [address] [address], [place], [place], [address], [place] tel:[phone] Bebo No Information Scheldt Natalya. . Referring Provider: Ari Siddiqui, [address] [place] [address] [address], [place], [address]. tel:[phone] [place] [address], [address], [place], [place], [address], [place] tel:[phone] Bebo No Information Axelldt Natalya. . Referring Provider: Ari Siddiqui, [address] [place] [address] [address], [place], [address]. tel:[phone] [place] [address] [address], [place], [place], [address], [place] tel:[phone] Crum Lynne No Information Negar Sheldon. . Referring Provider: Ari Siddiqui, [address] [place] [address] [address], [place], [address]. tel:[phone] [place] [address], [address], [place], [place], [address], [place] tel:[phone] Crum Lynne No Information Negar Sheldon. . Referring Provider: Ari Siddiqui, [address] [facility] [address], [place], [address]. tel:[phone] [place] [address], [address], [place], [place], [address], [place] tel:[phone] [place]eb[place] No Information Hisky Pito. . Referring Provider: Ari Siddiqui, [address] [facility] [address], [place], [address]. tel:[phone] [place] [address] [address], [place], [place], [address], [place] tel:[phone] Crum Lynne No Information Garrels Alfreda. . Referring Provider: Ari Siddiqui, [address] [facility] [address], [place], [address]. tel:[phone] [place] [address] [address], [place], [place], [address], [place] tel:[phone] [place] No Information Roberto Hoang. . Referring Provider: Ari Siddiqui, [address] [facility] [address], [place], [address]. tel:[phone] [place] [address] [address], [place], [place], [address], [place] tel:[phone] [place] No Information Hisky Pito. . Referring Provider: Ari Siddiqui, [address] [facility] [address], [place], [address]. tel:[phone] [place] [address] [address], [place], [place], [address], [place] tel:[phone] Crum Lynne No Information Hisky Pito. . Referring Provider: Ari Siddiqui, [address] [facility] [address], [place], [address]. tel:[phone] [place] [address] [address], [place], [place], [address], [place] tel:[phone] Crum Lynne No Information Garrels Alfreda. . Referring Provider: Ari Siddiqui, [address] [facility] [address], [place], [address]. tel:[phone] [place] [address] [address], [place], [place], [address], tel:[phone] [place]eb[place] No Information Abner Cervantes. . Referring Provider: Air Siddiqui, [address] [place] [address] [address], [place], [address]. tel:[phone] [place] [address], [address], [place], [place], [address], [place] tel:[phone] Crum Lynne No Information Negar Sheldon. . Referring Provider: Ari Siddiqui, [address] [place] [address] [address], [place], [address]. tel:[phone] [place] [address] [address], [place], [place], [address], [place] tel:[phone] Crum Lynne No Information Negar Sheldon. . Referring Provider: Ari Siddiqui, [address] [place] [address] [address], [place], [address]. tel:[phone] [place] [address], [address], [place], [place], [address], [place] tel:[phone] [place] No Information Erasmo Gant. . Referring Provider: Ari Siddiqui, [address] [place] [address] [address], [place], [address]. tel:[phone] [place] [address] [address], [place], [place], [address], [place] tel:[phone] Crum Lynne No Information Negar Sheldon. . Referring Provider: Ari Siddiqui, [address] [place] [address] [address], [place], [address]. tel:[phone] [place] [address] [address], [place], [place], [address], [place] tel:[phone] Crum Lynne No Information Shaheen Joseph. [address] [facility], [address], [place], [address], [place]. tel:[phone] Referring Provider: Ari Siddiqui, [address] [place] [address] [address], [place], [address]. tel:[phone] [facility], [address], [place], [place], [address], [place] tel:[phone] [place] No Information Shaheen Joseph. [address] [facility], [address], [place], [place], [facility], [place]. tel:[phone] Referring Provider: Ari Siddiqui, [address] [place] [address] [address], [place], [address]. tel:[phone] [facility], [address], [place], [place], [address], [place] tel:[phone] [place] No Information Negar Sheldon. . Referring Provider: Ari Siddiqui, [address] [place] [address] [address], [place], [address]. tel:[phone] [facility], [address], [place], [place], [address], [place] tel:[phone] [place] No Information Negar Sheldon. . Referring Provider: Ari Siddiqui, [address] [place] [address] [address], [place], [address]. tel:[phone] [facility], [address], [place], [place], [address], [place] tel:[phone] Crum Lynne No Information Masonglmanohar Delgado. . Referring Provider: Ari Siddiqui, [address] [place] [address] [address], [place], [address]. tel:[phone] [facility], [place], [place], [address], [place] tel:[phone] [place] No Information Shaheen Joseph. [address] [facility], [address], [place], [address], [place]. tel:[phone] Referring Provider: Ari Siddiqui, [address] [place] [address] [address], [place], [address]. tel:[phone] [place] [address], [address], [place], [place], [address], [place] tel:[phone] Crum Lynne No Information Garrels Alfreda. . Referring Provider: Ari Siddiqui, [address] [place] [address] [address], [place], [address]. tel:[phone] [place] [address] [address], [place], [place], [address], [place] tel:[phone] Beb[place] No Information Garrels Alfreda. . Referring Provider: Ari Siddiqui, [address] [place] [address] [address], [place], [address]. tel:[phone] [place] [address], [address], [place], [place], [address], [place] tel:[phone] [place] No Information Alexia Delgado. . Referring Provider: Ari Siddiqui, [address] [place] [address] [address], [place], [address]. tel:[phone] [place] [address] [address], [place], [address], [place] tel:[phone] Crum Lynne No Information Negar Sheldon. . Referring Provider: Ari Siddiqui, [address] [place] [address] [address], [place], [address]. tel:[phone] [place] [address] [address], [place], [place], [address], [place] tel:[phone] Crum Lynne No Information Shaheen Joseph. [address] [facility], [address], [place], [place], [facility], [place]. tel:[phone] Referring Provider: Ari Siddiqui, [address] [place] [address] [address], [place], [address]. tel:[phone] [place] [address] [address], [place], [place], [address], [place] tel:[phone] Crum Lynne No Information Erasmo Gant. . Referring Provider: Ari Siddiqui, [address] [place] [address] [address], [place], [address]. tel:[phone], [place], [place], [address], [place] tel:[phone] [place] No Information Marifer Avani. [address] [facility], [address], [place], [address], [place]. tel:[phone], [place], [place], [address], tel:[phone] [place] No Information Marifer Avani. [address] [facility], [address], [place], [place], [facility], [place]. tel:[phone], [place], [place], [address], [place] tel:[phone] [place] No Information Marifer Avani. [address] [facility], [address], [place], [address], [place]. tel:[phone], [place], [place], [address], tel:[phone] [place] No Information Marifer Avani. [address] [facility], [address], [place], [facility], [place]. tel:[phone], [place], [place], [address], [place] tel:[phone] [place] No Information Marifer Avani. [address] [facility], [address], [place], [place], [facility], [place]. tel:[phone], [place], [place], [address], tel:[phone] [place] No Information Marifer Avani. [address] [facility], [facility] [address], [place], [place], [facility], . tel:[phone], [place], [place], [address], tel:[phone] [place] No Information Marifer Avani. [address] [facility], [facility] [address], [place] [address], . tel:[phone], [place], [place], [address], tel:[phone] [place] Pain in joint involving pelvic region and thigh Marifer Avani. [address] [facility], [facility] [address], [place] [address], . tel:[phone] Family History Family Member Type Diagnosis Age At Onset No Information Payers Payer name Insurance type Covered green party ID Authorgalo douglas(s) [facility] [id number] Social History Type Description Quantity Date Captured Comments Sex Male Smoking Status No Information Chief Complaint And Reason For Visit No Information Reason For Referral Reason For Referral No Information Plan Of Treatment Date Type Action Status Referral Ordered: Referrals: Specialist. Evaluate and Treat (related to Adjustment disorder with depressed mood) ordered Referral Ordered: Depression: Depression management program timeframe: 1 Day. (related to Depression) ordered Referral Ordered: Clinical Psychology (related to Depression) ordered History Of Present Illness Encounter Date Complaint History Of Prese nt Illness No Information Functional Status Date Functional Assessmen t No Information Instructions Date Instruction Additional Infor mation Giving encouragement to exercise Related to Overweight Giving encouragement to exercise Related to Overweight Assessments Type Assessment Date No Information Patient Care Teams Name Effective Dates (start - stop) Status Members No Information
--- OUTSIDE RECORDS SUMMARY | 2025-04-25 02:03 | XMS_ITS | Clinical Summary ---
Author Organization [facility] Address [address] [place] [address] Phone Care Team Providers Care Tyre Finisher And Examiner Name Role Phone Antionette Valentine DO Primary Care Provider [phone] Allergies No known active allergies Social History [...] Comments Hepatitis C Virus (HCV) Screening 1979 Hepatitis B Immunization (1 of 3 - 19+ 3-dose series) 1998 Human Papillomavirus (HPV) Immunization (1 - 3-dose SCDM series) 2006 SARS-COV-2 Immunization ( season) 2024 06/23/2022, 06/29/2021, [...] to complete this topic Insurance Care Teams Tyre Finisher And Examiner Relationship Specialty [place] [address] [address] PCP - General Internal Medicine 07/04/22
--- OUTSIDE RECORDS SUMMARY | 2025-04-25 02:03 | XMS_ITS | Clinical Summary ---
Author Organization [facility] Address [address] [place] [address] Care Team Providers Care Split Leather Mosser Name Role Phone Francisco Valentinesey Dexter FOSTER Primary Care Provider [phone] Allergies No known active allergies Medications lisinopril [...] before meals as directed 2 Active lancets [facility] Check blood sugar 3 times a [...] 10/04/2018 Assessment & Plan (10/04/2018 6:50 PM ORTHOPAEDIC DOCTOR): Take your antibiotic as directed You may [...] Department Care Team Description 03/01/2025 Results Follow-Up [facility]opedic [facility] [address] [place] [address] Ari Siddiqui PA MRI Cervical Spine WO Contrast 02/28/2025 5:49 PM CDT - 02/28/2025 11:59 PM CDT Hospital Encounter [facility] [address] [place] [address] Cervical radiculopathy Discharge Disposition: Discharge to home or self care 02/16/2025 3:45 PM CDT Office Visit [facility] Orthopedics and Sports Medicine [address] [facility] [address] [place] [address] Ari Siddiqui PA Cervical radiculopathy (Primary Dx) [...] on file Legal Sex Male 11:43 AM ORTHOPAEDIC DOCTOR Gender Identity Male 10/07/2021 8:00 AM ORTHOPAEDIC DOCTOR Sexual Orientation Straight 10/07/2021 8: 00 AM ORTHOPAEDIC DOCTOR Obstetrics History Last Filed Vital Signs Vital [...] Cervical radiculopathy EGFR STAT 11/17/2017 4:00 PM ORTHOPAEDIC DOCTOR from Last 3 Months or Most Recently [...] stenosis. Uncovertebral spurring and facet arthropathy with jvql-xv-uutsqhiq neural foraminal narrowing. C5-C6: Posterior disc protrusion eccentric to the right indents the right ventral cord. Thickened ligamentum flavum. Pbnv-cq-mpuseftn right ventral spinal canal stenosis. Uncovertebral spurring and facet arthropathy with ddde-kh-yzdqtoku right and moderate left neural foraminal narrowing. [...] Carlo Harrison D.O. AP: AP Report ID: [id number] Reading Location: [id number] Procedure Note Carlo Harrison, DO - 03/01/2025 [...] stenosis. Uncovertebral spurring and facet arthropathy with jkll-ac-qbxnwkpj neural foraminal narrowing. C5-C6: Posterior disc protrusion eccentric to the right indents the right ventral cord. Thickened ligamentum flavum. Xeef-jf-womjorim rightventral spinal canal stenosis. Uncovertebral spurring and facet arthropathy with yzjy-ip-dfjmyvyo right and moderate left neural foraminal narrowing. [...] Carlo Harrison D.O. AP: AP Report ID: [id number] Reading Location: [place] [address] Ari ANDERSON IMG MRI PROCEDURES Final Re sult * eGFR (11/17/2017 4:00 PM ORTHOPAEDIC DOCTOR) eGFR 100 mL/min/1.7 3 m2 [facility] Comment: Interpretive Data Reference Interval Normal >/= 90 mL/min/1.73m2 Mildly decreased* 60 - 89 mL/min/1.73m2 Mildly to moderately decreased 45 - 59 mL/min/1.73m2 Moderately to severely decreased 30 - 44 mL/min/1.73m2 Severely decreased 15 - 29 mL/min/1.73m2 Kidney Failure < 15 mL/min/1.73m2 *Relative to young adult level If -Icelandic multiply value by 1.16. Estimated glomerular filtration [...] 2016. 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
--- OUTSIDE RECORDS SUMMARY | 2025-04-25 02:03 | XMS_ITS | Encounter Summary ---
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
--- OUTSIDE RECORDS SUMMARY | 2025-04-25 02:03 | XMS_ITS | Clinical Summary ---
Author Organization [facility] Address [address] [place] [address] Care Team Providers Care Naval Engineer Name Role Phone Antionette Valentine DO Primary Care Provider [phone] Allergies No known active allergies Medications fluticasone (FLONASE) 50 mcg/spray Aldrich, Suspension Administer 2 Sprays in each nostril [...] hyperglycemia, without long-term current use of insulin ([facility]) Check blood sugar 3 times a day [...] complication, without long-term current use of insulin ([facility]) Take 1 tablet by mouth daily. 100 [...] Encounters Date Type Department Care Team Description 04/17/2025 External Device Data [facility] ABSTRACTION Provider, Abstract 03/28/2025 External Device Data [facility] ABSTRACTION Provider, Abstract 03/27/2025 External Device Data [facility] ABSTRACTION Provider, Abstract 02/28/2025 External Device Data [facility] ABSTRACTION Provider, Abstract 02/27/2025 External Device Data [facility] ABSTRACTION Provider, Abstract 02/07/2025 [facility] Primary Care [address] [address] Antionette Valentine A, DO Morbid obesity with body mass index of 40.0-49.9 ([facility]) from Last 3 Months Immunizations Immunization Administration Dates Next Due (ADACEL/BOOSTRIX)(10 YR UP) TDAP VACCINE, 0.5ML, IM 08/29/2016,08/03/2013 (HAVRIX/VAQTA)(12 MO-18 YRS) HEPATITIS A VACCINE 0.5 ML PED/ADOL 2 DOSE, IM 04/22/2000,10/02/1999 (PFIZER)(12 YR UP) COVID-19 VACCINE - EMERGENCY USE AUTHORIZATION, MRNA, [id number](PF) 30 MCG/0.3 ML IM SUSP 06/29/2021,12/22/2020,11/26/2020 (PNEUMOVAX [...] PM CDT 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 Gender Identity Male 04/30/2023 6:35 PM CDT [...] Description 07/02/2025 4:00 PM CDT Office Visit [facility] [place] Primary Care - [facility] [address] [address] [place] [address] [address] Health Maintenance Due Date Last Done Comments HPV VACCINES (1 - Male 3-dos e series) 1994 DIABETES ANNUAL RETINAL EXAM 1997 HEPATITIS B VACCINES (1 of 3 - 19+ 3-dose series) 1998 COVID-19 Vaccine (4 - 2023-2 5 season) 2024 06/29/2021, 12/22/2020, 11/26/2020 FIT-DNA [...] A1C 6.0(H) <5.7 % of total Hgb [facility] Comment: For someone without known diabetes, [...] children. ESTIMATED AVERAGE GLUCOSE (MG/DL) 126 mg/dL [facility] ESTIMATED AVERAGE GLUCOSE (MMOL/L) 7.0 mmol/L [facility] Comment: Test Performed at: [place] [address] [address] [id number] RahdaEtienneCrystal [facility] Blood 11/29/2024 3:00 PM CDT 11/29/2024 3:00 PM CDT us Jesus Barraza NP CHEMISTRY ORDERABLES Final Resu lt [facility] [phone] [place] [address] [address] [phone] * (ABNORMAL) LIPID PANEL (11/29/2024 3:00 PM CDT) Pathologist [facility] CHOLESTEROL 145 <200 mg/dL [facility] HDL 53 > OR = 40 mg/dL [facility] TRIGLYCERIDE 179(H) <150 mg/dL [facility] LDL CALCULATED 66 mg/dL (calc) [facility] Comment: Reference range: <100 Desirable range <100 mg/dL for primary prevention; <70 mg/dL for patients with CHD or diabetic patients with > or = 2 CHD risk factors. LDL-C is now calculated using the Cherie calculation, which is a validated novel method providing better accuracy than the Friedewald equation in the estimation of LDL-C. Donell FERNANDEZ et al. MAJOR. 2013;310(19): 6725-5296 (http://education.Conference Hound/faq/YVJ896) CHOL/HDL RATIO 2.7 <5.0 (calc) [facility] NON-HDL CHOLESTEROL 92 <130 mg/dL (calc) [facility] Comment: For patients with diabetes plus 1 major ASCVD risk factor, treating to a non-HDL-C goal of <100 mg/dL (LDL-C of <70 mg/dL) is considered a therapeutic option. Test Performed at: [facility] [address] [place] [address] Demetrius Flower Blood 11/29/2024 3:00 PM CDT 11/29/2024 3:00 PM CDT Jesus Barraza NP CHEMISTRY ORDERABLES Final Resu lt [facility] [phone] [facility] [place] [address] [place] [phone] * MICROALBUMIN/CREATININE RATIO, RANDOM UR (11/29/2024 2:56 PM CDT) Creatinine, Urine 76 20 - 320 mg/dL [facility] MICROALBUMIN, URINE 0.2 See Note: mg/dL [facility] Comment: Reference Range: Reference Range [...] within a diagnostic category. Test Performed at: [facility] [address] [address] Demetrius Flower MD Urine URINE SPECIMEN OBTAINED BY CLEAN CATCH PROCEDURE / Unknown 11/29/2024 2:56 PM CDT 11/29/2024 2:59 PM CDT us Jesus Barraza NP URINE ORDERABLES Final Result [facility] [phone] [facility] [address] [address] [phone] * COLONOSCOPY REPORT (05/14/2022 1:06 PM CDT) Narrative Procedure Note Veronica Gold MD - 05/14/2022 1:05 PM CDT [facility] Endoscopy Patient Name: Chadd Patrick Procedure Date: [...] bowel preparation was evaluated using the BBPS ([place] Bowel Preparation Scale) with scores of: Right [...] signed electronically. Number of Addenda: [address]; [place] [address] Veronica Gold MD GI PROCEDURE ORDERABLES Final Re sult from Last 3 Months or Most Recently Relevant to Health Maintenance Insurance [employer] OPEN ACCESS HMO RX [employer] Commercial Care Teams Naval Engineer Relationship Specialty Start [place] [address] [facility] [address] [place] [address] PCP - General Internal Medicine 03/19/21
--- OUTSIDE RECORDS SUMMARY | 2025-04-25 02:03 | XMS_ITS | Encounter Summary ---
Author Organization [facility] Healthcare Address [address] [place] [address] Care Team Providers Care Oracle Ebs Developer Name Role Phone Antionette Valentine DO Primary Care Provider [phone] Reason for Visit * Diagnostic Imaging (Routine) - Closed Specialty Diagnoses / Procedures Referred By Kenny rhodes Referred To Contact Diagnoses Left shoulder pain, unspecified chronicity Procedures XR Shoulder Left 2 or More Views Ari Siddiqui PA [address] [place] [address] [address] [place] [address] Phone: tel: fax: Referral ID Status Reason Start Date Expiration Date Visits Re quested Visits Authorized [id number] Closed 06/25/2023 07/24/2024 1 1 Encounter Details Date Type Department Care Team (Late st Contact Info) Description 06/25/2023 7:46 AM CDT Hospital Encounter [facility] Medical [facility] Orthopedics and Sports Medicine 4 [facility] [address] [place] [phone] Social History Tobacco Use Types Packs/Day Years [...] on file 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 A type 1 acromion is noted that a hypertrophic distal clavicle is noted to be impinging in the subacromial space. Ari [place] IMG XR PROCEDURES Final Res ult documented in this encounter Visit Diagnoses Not on filedocumented in this encounter Care Teams Oracle Ebs Developer Relationship Specialty Start [place] [address] [facility] [address] [place] [address] PCP - General Internal Medicine 06/27/21 documented as of this encounter
--- NOTE | 2025-04-25 07:01 | WPDHPUPDATE1 ---
History and Physical Update Update Date/Time: 04/25/25 07:01 Patient seen and examined in pre-operative holding area. No interval change in medical history or symptoms. Patient recalls previous discussion of benefits and alternatives to procedure. Continues to desire to proceed with right endoscopic possible open carpal tunnel release and right cubital tunnel release. Reviewed procedure, post-op expectations and risks including but not limited to bleeding, infection, injury to tendon/nerve/vessel, decreased hand function, stiffness, RSD, no change or worsening of symptoms. I discussed the possible use of assistants and their participation in the case. Patient stated understanding and signed the consent form wishing to proceed.
--- NOTE | 2025-04-25 07:01 | W.PM.PROC2 ---
Procedure Note - Detailed Date of Procedure 04/25/25 Pre-op Diagnosis right carpal and cubital tunnel syndrome Post-op Diagnosis Same Procedure Performed right ectr and CuTR Surgeon Uriel Javed MD Ground Crewman Aircraft Support issac guzman pa-c Anesthesia MAC Description of Procedure INFORMED CONSENT: The patient was seen and examined and marked in the pre-op area.? The patient signed the consent form. PROCEDURE IN DETAIL:The patient taken back to OR on the stretcher in supine position. Time out performed with anesthesia, surgeon and staff agreeing on patient's name site and surgery to be performed SCDs were placed on the lower extremities and inflated. A tourniquet was placed on {right} upper extremity and antibiotics given IV After anesthesia administered sedation I injected {10}cc 1%lido with epi and 0.5% marcaine plain at the operative sites The?{right upper extremity}?was prepped and draped in sterile fashion the??{right upper extremity} was? exsanguinated with Esmarch bandage and tourniquet inflated to 250mmHg I made a transverse incision in the {right} volar distal wrist crease through skin and dermis with 15 blade scalpel.? Littler scissors spread down to antebrachial fascia. A small incision was made in antebrachial fascia allowing access to Carpal tunnel. I proceeded with sequential dilation staying in line with the ring finger and hugging the hook of the hamate.? I then used the synovial elevator to free any adhesions from the underside of the transverse carpal ligament. Next I was able to insert the Microaire endoscopic carpal tunnel device with direct visualization of the transverse fibers on the monitor and proceeded with complete segmental retrograde release of the ligament in its entirety.? I irrigated with normal saline and closed with 4-0 monocryl for dermis and subcuticular closure. I next proceeded with making a longitudinal incision between two heads for flexor carpi ulnaris at end of {right} cubital tunnel with 15 blade scalpel.? Littler scissors were used to spread down to FCU fascia.? An incision was made in FCU fascia and ulnar nerve identified exiting cubital tunnel.? I proceeded with complete retrograde release of the cubital tunnel including 7cm proximal for the intermuscular septum.? The nerve appeared healthy with visible vaso nervorum.? There was no subluxation on full elbow range of motion. ? I irrigated with normal saline and closure with 4-0 monocryl for dermis and subcuticular. The incisions were covered with Dermabond then 4x4s, lanette, and a posterior elbow and volar wrist splint for patient safety, security and comfort and secured with dyan bandages after the tourniquet was let down noting the hand was warm and well perfused.? Patient awaken from anesthesia and transferred to recovery in stable condition Complications - none EBL- 1cc Disposition - home in stable condition Issac Guzman PA-C was essential for positioning, retraction, closure and dressing placement [facility] Billing Surgery - Charge Forward: Surgery Billing ([id number] same for issac adding )
[2025-04-25] MEDS: LACTATED RINGERS 1,000 ML 30 ML IV CONT (11:50)
[2025-04-25] MEDS: ACETAMINOPHEN 500 MG TABLET 1000 MG PO (11:55)
[2025-04-25 11:59] VITALS: BP 142/95; PULSE 88; RESP 16; TEMP 36.8; O2SAT 98; BMI 39.4
[2025-04-25] MEDS: ceFAZolin 3 GM/D5W 100 ML 100 ML IVPB (14:28)
[2025-04-25] MEDS: LIDO 1%/EPINEPHRINE 1:100,000 50 ML VIAL 20 ML INFILTRATE (14:39)
[2025-04-25] MEDS: BUPivacaine HCL 0.5% 10 ML AMP INFILTRATE (14:40)
[2025-04-25 15:15] VITALS: BP 124/82; PULSE 85; RESP 16; O2SAT 95
[2025-04-25 15:45] VITALS: BP 132/86; PULSE 74; RESP 16
[2025-04-25 16:15] VITALS: BP 135/81; PULSE 72; RESP 16
== END 2025-04-25 16:45 | disposition home or self-care (01) ==
PROVIDERS: Visit Provider Plastic Surgery
PROC: 01N54ZZ Release Median Nerve, Percutaneous Endoscopic Approach (ICD-10-PCS; CPT 29848; principal; 2025-04-25 13:15)
DX: G56.01 Carpal tunnel syndrome, right upper limb (principal); G56.21 Lesion of ulnar nerve, right upper limb; E11.9 Type 2 diabetes mellitus without complications; K21.9 Gastro-esophageal reflux disease without esophagitis; F32.A Depression, unspecified; G47.33 Obstructive sleep apnea (adult) (pediatric); E66.9 Obesity, unspecified; Z68.39 Body mass index [BMI] 39.0-39.9, adult; Z79.1 Long term (current) use of non-steroidal anti-inflammatories (NSAID); Z79.84 Long term (current) use of oral hypoglycemic drugs; Z79.85 Long-term (current) use of injectable non-insulin antidiabetic drugs; Z79.891 Long term (current) use of opiate analgesic; Z87.891 Personal history of nicotine dependence
CPT/HCPCS: 64718; 29848; 82948; A9270; J0690; J2004; J2250; J2704; J3010; J7120

== ENCOUNTER 2025-08-21 08:48 | Outpatient (CLI) | payer OTHER, SELFPAY ==
--- NOTE | 2025-08-21 09:07 | ECG_ITS ---
Test Date: 2025-08-21 09:22:18 Measurements Intervals Savery Rate: 76 P: 41 NE: 184 QRS: 9 QRSD: 102 T: 76 QT: 367 QTc: 413 Interpretive Statements SINUS RHYTHM NONSPECIFIC ST & T-WAVE ABNORMALITY- LAT/HIGH LAT LEADS BORDERLINE ECG No previous ECG available for comparison Electronically Signed On 08-21-2025 10:23:09 CUSTOMER ENGAGEMENT REPRESENTATIVE by Cuauhtemoc Reed D.O.
[2025-08-21 10:00] LABS: Anion Gap 6 mmol/L (4-12); Blood Urea Nitrogen 26 mg/dL (9-20); Calcium 10.0 mg/dL (8.4-10.2); Carbon Dioxide 28 mmol/L (22-30); Chloride 101 mmol/L (98-107); Estimated Glomerular Filt Rate > 60; Glucose 80 mg/dL (65-110); Potassium 4.2 mmol/L (3.4-5.0); Sodium 135 mmol/L (137-145)
== END 2025-08-21 08:49 | disposition home or self-care (01) ==
PROVIDERS: Visit Provider Anesthesiology
DX: Z01.818 Encounter for other preprocedural examination (principal); R94.31 Abnormal electrocardiogram [ECG] [EKG]; E11.9 Type 2 diabetes mellitus without complications; E78.5 Hyperlipidemia, unspecified; I10 Essential (primary) hypertension; Z87.891 Personal history of nicotine dependence
CPT/HCPCS: 36415; 80048; 93005

== ENCOUNTER 2025-08-30 05:59 | Day surgery (SDC) | payer OTHER, SELFPAY ==
--- OUTSIDE RECORDS SUMMARY | 2023-06-25 06:46 | XMS_ITS | Encounter Summary ---
Author Organization [facility] Healthcare Address [address] [place] [address] Care Team Providers Care Head Athletic Trainer Name Role Phone Antionette Valentine DO Primary Care Provider [phone] Reason for Visit * Diagnostic Imaging (Routine) - Closed Specialty Diagnoses / Procedures Referred By Kenny rhodes Referred To Contact Diagnoses Left shoulder pain, unspecified chronicity Procedures XR Shoulder Left 2 or More Views Ari Siddiqui PA [address] [place] [address] [address] [place] [address] Phone: tel: fax: Referral ID Status Reason Start Date Expiration Date Visits Re quested Visits Authorized [id number] Closed 06/25/2023 07/24/2024 1 1 Encounter Details Date Type Department Care Team (Late st Contact Info) Description 06/25/2023 7:46 AM CDT Hospital Encounter [facility] Medical Group Orthopedics and Sports Medicine [address] [facility] [address] [place] [id number] Social History Tobacco Use Types Packs/Day Years Used Date Smoking Tobacco: Former Smokeless Tobacco: Never Alcohol Use Standard Drinks/Week Comments Yes 0 (1 standard drink = 0.6 oz pur e alcohol) AUDIT-C Answer Date Recorded Q1: How often do you have a drink containing alcohol? Never 01/12/2025 Q2: How many drinks containi ng alcohol do you have on a typical day when you are drinking? Patient does not drink Q3: How often do you have si x or more drinks on one occasion? Never 01/12/2025 Sex and Gender Information Value Date Recorded Sex Assigned at Not on file Legal Sex Male 11:43 AM TICKET CLERK Gender Identity Male 10/07/2021 8:00 AM TICKET CLERK Sexual Orientation Straight 10/07/2021 8: 00 AM TICKET CLERK documented as of this encounter Plan of Treatment Not on file documented as of this encounter Procedures Procedure Name Priority Date/Time Associated Diagnosis Comments XR SHOULDER LEFT 2 OR MORE VIEWS Routine 06/25/2023 9:36 AM CDT Trapezius muscle spasm documented in this encounter Results * XR Shoulder Left 2 or More Views (06/25/2023 9:36 AM CDT) Anatomical Region Laterality Modality Upper Extremities, Shoulder Left [facility]i [facility] Radiography Narrative 06/25/2023 9:36 AM CDT Four views of the left shoulder negative for fracture dislocation or osseous lesion. Advanced arthritic changes are noted at the acromioclavicular joint. Previous trauma suspected a distal 3rd of the clavicle. Narrowing of the glenohumeral joint space is noted consistent with [id number] arthritic changes. A type 1 acromion is noted that a hypertrophic distal clavicle is noted to be impinging in the subacromial space. Ari ANDERSON IMSong XR PROCEDURES Final Res ult documented in this encounter Visit Diagnoses Not on filedocumented in this encounter Care Teams Head Athletic Trainer Relationship Specialty [place] [address] [facility] [address] [place] [address] PCP - General Internal Medicine 06/27/21 documented as of this encounter
[2025-05-10 12:02] VITALS: BMI 38.8
[2025-08-16 13:35] VITALS: BMI 39.4
--- OUTSIDE RECORDS SUMMARY | 2025-08-30 06:11 | XMS_ITS | Clinical Summary ---
Author Organization [facility] Address [address] [place] [address] Care Team Providers Care Foam Fabricator Name Role Phone Unavailable Primary Care Provider Unavailabl e Source Comments [facility],non-owned Affiliates and Associated Physician Practices is amultiple site organization consisting of ambulatory clinics and hospital sitesin [place], [place], [place] and [place]. This disclosure is being madepursuant to the Care Everywhere program and may not contain all information available regarding this patient. 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 Gender Identity Not on file Sexual Orientation Not on file Last Filed Vital Signs Vital Sign Reading Time Taken Comments Blood Pressure 122/80 11/08/2019 9:14 AM VEHICLE DYNAMICS ENGINEER Pulse 81 11/08/2019 9:14 AM VEHICLE DYNAMICS ENGINEER Temperature 36.4 C (97.5 F) 11/08/2019 9:14 AM VEHICLE DYNAMICS ENGINEER Respiratory Rate 16 11/08/2019 9:14 AM VEHICLE DYNAMICS ENGINEER Oxygen Saturation 97% 11/08/2019 9:14 AM VEHICLE DYNAMICS ENGINEER Inhaled Oxygen Concentration - - Weight 127 kg (280 lb) 11/08/2019 9:14 AM VEHICLE DYNAMICS ENGINEER Height 180.3 cm (5' 11) 11/08/2019 9:14 AM VEHICLE DYNAMICS ENGINEER Body Mass Index 39.05 11/08/2019 9:14 AM VEHICLE DYNAMICS ENGINEER Plan of Treatment Health Maintenance Due Date [...] of 3 - 19+ 3-dose series) 1998 SCREENING FOR DIABETES 11/08/2019 DEPRESSION SCREENING 09/13/2024 COVID-19 VACCINE (1 - 2024-2 6 season) 2025 INFLUENZA VACCINE (#1) 2025 08/29/2016 DTAP/TDAP/TD VACCINES (2 - T d or Tdap) 08/29/2026 08/29/2016 ZOSTER VACCINE (1 of 2) 2029 HIB VACCINE Aged Out No longer eligi ble based on patient's age to complete this topic HPV VACCINE Aged Out No longer eligi ble [...] patient's age to complete this topic Insurance [facility]
--- OUTSIDE RECORDS SUMMARY | 2025-08-30 06:11 | XMS_ITS | Encounter Summary ---
Author Organization [facility] Address [address] [place] [address] Care Team Providers Care Box Office Attendant Name Role Phone Antionette Valentine Primary Care Provider Encounter Details Date Type Department Care Team (Late st Contact Info) Description 08/28/2025 External Device Data [facility] ABSTRACTION Provider, Abstract NO ADDRESS ON FILE Social History Tobacco Use Types Packs/Day Years Used Date Smoking Tobacco: Former Cigarettes 13.5 S tarted: 03/10/2012 Smokeless Tobacco: Never Alcohol Use Standard Drinks/Week Comments Yes 0 (1 standard drink = 0.6 oz pur e alcohol) monthly Sex and Gender Information Value Date Recorded Sex Assigned at Male 04/30/2023 6:35 PM CDT 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 [address] [facility] [address] [place] [address] Elida Mckenna FNP [address] [facility] [address] [place] [address] documented as of this encounter Visit Diagnoses Not on filedocumented in this encounter Care Teams Box Office Attendant Relationship Specialty Start [place] [address] [facility] [address] [place] [phone] PCP - General Internal Medicine 03/19/21 documented as of this encounter
--- OUTSIDE RECORDS SUMMARY | 2025-08-30 06:11 | XMS_ITS | Clinical Summary ---
Author Organization [facility] Address [address] [place] [address] Phone Care Team Providers Care Composing Machine Operator/Tender Name Role Phone Antionette Valentine DO Primary Care Provider [phone] Allergies No known active allergies Medications Ozempic, 1 MG/DOSE, 4 MG/3ML Solution Pen-injector 1 mg by Subcutaneous route once a week. Active omeprazole (PriLOSEC) 20 MG CAPSULE DELAYED RELEASE Take 20 mg by mouth daily. 2 Active multi-vitamins (Multi-Vitamin ) Tablet Take 1 Tablet by mouth daily. Active metFORMIN (GLUCOPHAGE) 1000 MG Tablet Take 1,000 mg by mouth 2 times daily (with meals). 5 Active Melatonin (Melatonin Maximum Strength) 5 MG Tablet Take 5 mg by mouth nightly as needed for Other (Sleep). 3 Active lisinopril (PRINIVIL, ZESTRIL) 40 MG Tablet Take 40 mg by mouth daily. 5 Active Fingerstix Lancets Misc Check blood sugar 3 times a day prior to meals as directed. 3 Active glucose blood (Precision QID Test) Strip Check blood sugar before meals as directed. Three times daily 2 Active escitalopram (LEXAPRO) 20 MG Tablet Take 20 mg by mouth daily. 5 Active buPROPion (WELLBUTRIN) 150 MG XL tablet Take 150 mg by mouth every morning. 5 Active Blood Glucose Monitoring Suppl (GHT Blood Glucose Monitor) w/Device Kit Check blood sugar before meals as directed 2 Active atorvastatin (LIPITOR) 40 MG Tablet Take 40 mg by mouth daily. 0 Active acetaminophen (TYLENOL) 500 MG Tablet Take 1,000 mg by mouth every 6 hours as needed for Moderate or more severe pain. 3 Active Inulin (FIBER CHOICE PO) Take by mouth daily. Active naratriptan (AMERGE) 2.5 MG Tablet Take 1 tablet (2.5 mg) by mouth 1 time at onset of migraine. May repeat in 4 hours. Max dose of 5 mg in 24 hours. Do not use more than 9 days per month. 5 Active sulfamethoxazo le-trimethopri m DS (Bactrim DS) 800-160 MG TabletIndicati ons:Acute cystitis with hematuria Take 1 Tablet by mouth 2 times daily for 10 days. 20 Tablet 5 08/06/20 25 Active Problems No known active problems Encounters Date Type Department Care Team Description 07/29/2025 Results Follow-Up [facility] [address] [place] [address] Monserrat Carrillo, COMMUNITY AMBASSADOR, INSPECTOR RAG SORTING POCT UA AUTOMATED W/O MICRO, CULTURE, URINE 07/27/2025 12:55 PM MASTER SONAR TECHNICIAN Urgent Care Visit [facility] [address] [place] [address] Jake Herrera, PAC Acute cystitis with hematuria (Primary Dx); Urinary frequency Discharge Disposition: Discharged to home or Selfcare 07/27/2025 Travel from Last 3 Months Immunizations Immunization Administration Dates Next Due Hepatitis A Vaccine, Pediatric/adolescent, 2 Dose Schedule 04/22/2000,10/02/1999 Influenza Vaccine, MDCK,quad rivalent, pres free 07/04/2019,06/28/2017 Influenza Vaccine, Quadrivalent, PF 06/13,06/15/2021,07/02/2020,2017 Influenza, Injectable, Mdck, Preservative Free 05/31/2025,05/29/2024 Influenza, Intradermal, Quad rivalent, Preservative Free 08/29/2016 Influenza, Seasonal, Injecta ble, Undefined 06/12/2021,06/27/2015,06/08/2014,2012 Pneumococcal Vaccine - 13 Valent 06/06/2013 Pneumococcal Vaccine Adult - 23 Valent 09/23/2021 Rabies Vaccine, Unspecified Formulation 12/05/2003,11/07/2003 TD VACCINE 01/19/2003,03/31/1993 TDAP Vaccine 08/29/2016,08/03/2013 Social History Tobacco Use Types Packs/Day Years Used Date Smoking Tobacco: Former Cigarettes Smokeless Tobacco: Former Chew Tobacco Cessation:Counseling Given: Not Answered Alcohol Use Standard Drinks/Week Comments Yes 0 (1 standard drink = 0.6 oz pur e alcohol) AUDIT-C Answer Date Recorded Q1: How often do you have a drink containing alc ohol? Monthly or less 05/16/2025 Q2: How many drinks containi ng alcohol do you have on a typical day when you are drinking? 1 or 2 05/16/2025 Q3: How often do you have si x or more drinks on one occasion? Less than monthly 05/16/2025 Sex and Gender Information Value Date Recorded Sex Assigned at Not on file Legal Sex Male 10:38 PM CDT Gender Identity Not on file Sexual Orientation Not on file Last Filed Vital Signs Vital Sign Reading Time Taken Comments Blood Pressure 134/70 07/27/2025 1:01 PM MASTER SONAR TECHNICIAN Pulse 112 07/27/2025 1:01 PM MASTER SONAR TECHNICIAN Temperature 36.9 C (98.5 F) 07/27/2025 1:01 PM MASTER SONAR TECHNICIAN Respiratory Rate 16 07/27/2025 1:01 PM MASTER SONAR TECHNICIAN Oxygen Saturation 96% 07/27/2025 1:01 PM MASTER SONAR TECHNICIAN Inhaled Oxygen Concentration - - Weight 121.6 kg (268 lb) 05/16/2025 6:42 PM CDT Height 177.8 cm (5' 10) 07/04/2022 10:47 PM CDT Body Mass Index 38.45 07/04/2022 10:47 PM CDT Plan of Treatment Health Maintenance Due Date Last Done Comments Hepatitis C Virus (HCV) Screening 1979 Hepatitis B Immunization (1 of 3 - 19+ 3-dose series) 1998 Cologuard 2024 Immunochemical Fecal Occult Blood 2024 Td Immunization Every 10 Years (Adults With 1 Tdap) 08/29/2026 08/29/2016, 08/03/2013, 01/19/2003, Additional history exists Colonoscopy 05/14/2032 05/14/2022 Colorectal Cancer Screening 05/14/2032 Respiratory Syncytial Virus (RSV) Immunization (Adult) (1 - 1-dose 75+ series) 2054 DTaP/Tdap/Td Immunization Discontinued 2015, 08/03/2013, 01/19/2003, Additional history exists TdaP Immunization Discontinued 08/29/2016, 08/03/2013 Pneumococcal Immunization Combined Aged Out 09/23/2021, 06/06/2013 No longer eligibl e based on patient's age to complete this topic Influenza Immunization Completed 5, 05/29/2024, 06/23/2022, Additional history exists SARS-COV-2 Immunization Completed 05/31/20 25, 05/29/2024, 09/21/2023, Additional history exists Human Papillomavirus (HPV) Immunization (No Doses Required) Completed Meningococcal Immunization (ACWY) Aged Out No longer eligible based on patient's age to complete this topic Rotavirus Immunization Aged Out No lo nger eligible based on patient's age to complete this topic Procedures Procedure Name Priority Date/Time Associated Diagnosis Comments POCT UA AUTOMATED W/O MICRO Routine 07/27/2025 1:09 PM MASTER SONAR TECHNICIAN Urinary frequency CULTURE, URINE Routine 07/27/2025 1:09 PM MASTER SONAR TECHNICIAN Urinary frequency from Last 3 Months Results * (ABNORMAL) POCT UA AUTOMATED W/O MICRO (07/27/2025 1:09 PM MASTER SONAR TECHNICIAN) POC UA SPECIFIC GRAVITY 1.025 URINE PH 5.0 5.0 - 9.0 POC URINE LEUKOCYTES 500 /uL(A) Negative Aurelio/uL POC URINE NITRITE Positive(A) Negative POC URINE PROTEIN 500 mg/dL(A) Negative mg/dL POC URINE GLUCOSE Negative Negative, Norm mg/dL POC URINE KETONE Negative Negative mg/dL POC URINE UROBILINOGEN 4 E.U./dL (mg/dL)(A) Norm, 0.2 E.U./dL (mg/dL), 1 E.U./dL (mg/dL) POC URINE BILIRUBIN 1 mg/dL(A) Negative mg/dL POC URINE BLOOD INSTRUMENT 250 Hang/uL(A) Negative Hang/uL POC URINE COLOR Dark Yellow POC URINE CLARITY Very Cloudy Urine 07/27/2025 1:09 PM MASTER SONAR TECHNICIAN Jake Herrera [facility] POINT OF CARE TESTING (MANUAL ) Final Result * CULTURE, URINE (07/27/2025 1:09 PM MASTER SONAR TECHNICIAN) CULTURE RESULTS ESCHERICHIA COLI 07/29/2025 3:21 PM MASTER SONAR TECHNICIAN [facility] Culture URINE SPECIMEN OBTAINED BY CLEAN CATCH PROCEDURE / Unknown Non-Phlebotomy Collection / Unknown 07/27/2025 1:09 PM MASTER SONAR TECHNICIAN 07/27/2025 1:09 PM MASTER SONAR TECHNICIAN Narrative Organism Antibiotic Method Susceptibility Escherichia coli Ampicillin [facility] V[facility] II 4 mcg/ml: Susceptible Escherichia coli Ampicillin/sulbactam [facility] II <=2 mcg/ml: Susceptible Escherichia coli Cefazolin [facility] II <16 mcg/ml: Susceptible Escherichia coli Cefepime [facility] II <=0.12 mcg/ml: Susceptible Escherichia coli Ceftriaxone [facility] II <=0.25 mcg/ml: Susceptible Escherichia coli Gentamicin [facility] II <=1 mcg/ml: Susceptible Escherichia coli Levofloxacin [facility] II <=0.12 mcg/ml: Susceptible Escherichia coli Meropenem [facility] II <=0.25 mcg/ml: Susceptible Escherichia coli Nitrofurantoin [facility] II <=16 mcg/ml: Susceptible Escherichia coli Piperacillin/Tazobactam [facility] II <=4 mcg/ml: Susceptible Escherichia coli Trimeth/Sulfamethoxazole [facility] I I <=20 mcg/ml: Susceptible us Jake Herrera [facility] MICROBIOLOGY - GENERAL ORDERA BLES Final Result [facility] [address] [place] [address], [place] from Last 3 Months Insurance [facility] Care Teams Composing Machine Operator/Tender Relationship Specialty Start [place] [id number] [facility] [address] [place] [address] PCP - General Internal Medicine 07/04/22
--- OUTSIDE RECORDS SUMMARY | 2025-08-30 06:11 | XMS_ITS | Clinical Summary ---
Author Organization [facility] Address [address] [place] [address] Care Team Providers Care Real Estate Executive Assistant Name Role Phone Antionette Valentine DO Primary Care Provider [phone] Allergies No known active allergies Medications fluticasone (FLONASE) 50 mcg/spray Ranson, Suspension Administer 2 Sprays in each nostril [...] hyperglycemia, without long-term current use of insulin ([facility]) Check blood sugar 3 times a day [...] FIBER ORAL Take by mouth. Acti ve semaglutide (Ozempic) 1 mg/dose (4 mg/3 mL) Pen Injector Inject 1 mg by subcutaneous injection every 7 days. 9 mL 3 5 Active metFORMIN (GLUCOPHAGE) 1,000 mg tabletIndication s:Type 2 diabetes mellitus without complication, without long-term current use of insulin ([facility]) Take 1 tablet by mouth twice daily with meals. 200 Tablet 3 5 Active escitalopram oxalate (LEXAPRO) 20 mg tabletIndication s:Morbid obesity with body mass index of 40.0-49.9 (CMS/HCC) Take 1 tablet by mouth daily. 100 Tablet 3 5 Active atorvastatin (LIPITOR) 40 mg tabletIndication s:Type 2 diabetes mellitus without complication, without long-term current use of insulin ([facility]) Take 1 Tablet (40 mg) by mouth daily. 100 Tablet 3 5 Active buPROPion HCL (WELLBUTRIN XL) 150 mg Extended Release 24 hour tablet Take 1 Tablet (150 mg) by mouth daily in the morning. 90 Tablet 2 5 Active lisinopriL (PRINIVIL) 40 mg tabletIndication s:Essential hypertension Take 1 Tablet (40 mg) by mouth daily. 100 Tablet 3 5 Active naratriptan (AMERGE) 2.5 mg tablet Take 1 tablet (2.5 mg) by mouth 1 time at onset of migraine. May repeat in 4 hours. Max dose of 5 mg in 24 hours. Do not use more than 9 days per month. 18 Tablet 2 5 Active Active Problems Problem Noted Date [...] tis 02/03/2016 Obstructive sleep apnea syndrome 02/03/2016 Daytime somnolence 11/05/2015 Fever, unspecified 10/11/2012 Pure [...] Encounters Date Type Department Care Team Description 08/28/2025 External Device Data STL ABSTRACTION Provider, Abstract 08/23/2025 4:15 PM ROOF TILE LAYER Office Visit [address] [address] Jesus Barraza NP Abnormal EKG (Primary Dx); Preoperative examination 08/23/2025 Orders Only [address] [address] Provider, Abstract 08/14/2025 External Device Data STL ABSTRACTION Provider, Abstract 07/31/2025 External Device Data STL ABSTRACTION Provider, Abstract 07/31/2025 External Device Data STL ABSTRACTION Provider, Abstract 07/17/2025 External Device Data STL ABSTRACTION Provider, Abstract 07/11/2025 External Device Data STL ABSTRACTION Provider, Abstract 07/10/2025 External Device Data STL ABSTRACTION Provider, Abstract 07/02/2025 4:00 PM CDT Office Visit [address] [address] Antionette Valentine, Type 2 diabetes mellitus without complication, without long-term current use of insulin ([facility]) (Primary Dx); Essential hypertension; Other migraine without status migrainosus, not intractable; Morbid obesity with body mass index (BMI) of 40.0 or higher ([facility]) 06/19/2025 External Device Data STL ABSTRACTION Provider, Abstract 06/05/2025 External Device Data STL ABSTRACTION Provider, Abstract from Last 3 Months Immunizations Immunization Administration Dates Next Due (ADACEL/BOOSTRIX)(10 YR UP) TDAP VACCINE, 0.5ML, IM 08/29/2016,08/03/2013 (HAVRIX/VAQTA)(12 MO-18 YRS) HEPATITIS A VACCINE 0.5 ML PED/ADOL 2 DOSE, IM 04/22/2000,10/02/1999 (PFIZER)(12 YR UP) COVID-19 VACCINE - EMERGENCY USE AUTHORIZATION, MRNA, [id number](PF) 30 MCG/0.3 ML IM SUSP 06/29/2021,12/22/2020,11/26/2020 (PNEUMOVAX [...] 6 MOS UP CELL DERIVED PF IM 07/23/2023,07/04/2019,06/28/2017 INFLUENZA VACCINE QUADRIVALE NT 6 MOS UP PF IM 06/23/2022,06/15/2021,07/02/2020,06/11 Influenza Seasonal Unspecifi ed Formulation IM 06/12/2021,08/29/2016,06/27/2015,06/08,06/06/2013 Influenza Vaccine 18+ C.derived Pf Im 05/31/2025 ,05/29/2024 Influenza Vaccine Quad Split (18-64) Pf Id 08/29/2016 Rabies Vaccine, Unspecified Formulation 12/05/2003,11/07/2003 Family History [...] PM CDT Legal Sex Male 7:16 PM ROOF TILE LAYER Gender Identity Male 04/30/2023 6:35 PM CDT Sexual Orientation Straight 04/30/2023 6: 35 PM CDT Occupation Industry Job Start Date Job End Date Not on file Not on file Not on file Not on file Last Filed Vital Signs Vital Sign Reading Time Taken Comments Blood Pressure 130/78 08/23/2025 4:18 PM ROOF TILE LAYER Pulse 106 08/23/2025 4:18 PM ROOF TILE LAYER Temperature 36.2 C (97.2 F) 08/23/2025 4:18 PM ROOF TILE LAYER Respiratory Rate 19 08/23/2025 4:18 PM ROOF TILE LAYER Oxygen Saturation 97% 08/23/2025 4:18 PM ROOF TILE LAYER Inhaled Oxygen Concentration - - Weight 119.8 kg (264 lb 3.2 oz) 08/23/2025 4:18 PM ROOF TILE LAYER Height 175.3 cm (5' 9) 08/23/2025 4:18 PM ROOF TILE LAYER Body Mass Index 39.02 08/23/2025 4:18 PM ROOF TILE LAYER Plan of Treatment Upcoming Encounters Date Type Department Care Team (Late st Contact Info) Description 10/24/2025 4:30 PM ROOF TILE LAYER Office Visit [facility] Primary Care - [facility] [address] [facility] [address] [place] [address] Elida Mckenna, PACKAGE CAR DRIVER [address] [facility] [address] [place] [address] Health Maintenance Due Date Last Done Comments DIABETES ANNUAL RETINAL EXAM 1997 HEPATITIS B VACCINES (1 of 3 - 19+ 3-dose series) 1998 FIT-DNA Q 3 years 2024 FIT/FOBT Q 1 year 2024 Flex Sig/CT Colonography Q 5 years 2024 DIABETES ANNUAL FOOT EXAM 11/29/20252024, 04/29/2023, 07/21/2022, Additional history exists DIABETES MICROALBUMIN ANNUAL SCREEN 11/29/2025 11/29/2024, 11/02/2023, 07/21/2022, Additional history exists LDL CHOLESTEROL ANNUAL 11/29/2025 , 04/29/2023, 07/21/2022, Additional history exists DIABETES HBA1C Q 6 MONTHS 12/31/20252024, 11/29/2024, 11/02/2023, Additional history exists DIABETES: A1C (Auto Order) 07/02/202607/02, 11/29/2024, 11/02/2023, Additional history exists DTAP/TDAP/TD VACCINES (4 - T d or Tdap) 08/29/2026 08/29/2016, 08/03/2013, 01/19/2003, Additional history exists COLORECTAL SCREENING 05/14/2027 05/14/2022, 05/14/2022, 05/14/2022, Additional history exists Colorectal Cancer Screening 05/14/2027 Preventative Visit- Commercial Completed 0 11/29/2024, 04/29/2023, 04/29/2023, Additional history exists COVID-19 Vaccine Completed 05/31/2025, , 12/22/2020, Additional history exists INFLUENZA VACCINE Completed 05/31/2025, , 07/23/2023, Additional history exists HPV VACCINES (No Doses Required) Completed Procedures Procedure Name Priority Date/Time Associated Diagnosis Comments MN ECG ROUTINE ECG W/LEAST 12 LDS W/I&R Routine 08/23/2025 4:15 PM ROOF TILE LAYER POC HEMOGLOBIN A1C Routine 07/02/2025 4: 19 PM CDT LIPID PANEL Routine 11/29/2024 3:00 PM CDT [...] Recently Relevant to Health Maintenance Results * MN ECG ROUTINE ECG W/LEAST 12 LDS W/I&R (08/23/2025 4:15 PM ROOF TILE LAYER) [facility] - 08/23/2025 4:15 PM ROOF TILE LAYER Jesus Barraza NP 08/24/2025 9:35 AM EKG 12-LEAD Date/Time: 08/23/2025 4:15 PM Performed by: Jesus Barraza NP Authorized by: Provider, Abstract Comparison: compared with previous ECG from 08/17/2025 Similar to previous ECG Rhythm: sinus rhythm and sinus tachycardia Rate: tachycardic QRS axis: normal Conduction: conduction normal ST Segments: ST segments normal T Waves: T waves normal Clinical impression: normal ECG us Abstract Provider ECG ORDERABLES Edited Result - Final Performing Organization Address City/[facility]/ZIP Co de Phone Number [facility] CLIA# [id number] [place] [address] * POC HEMOGLOBIN A1C (07/02/2025 4:19 PM CDT) HGB A1C POC 5.9 4.0 - 6.0 % [facility] KIT [address] NUMBER POC [address] [facility] KIT EXP DATE POC [id number] [facility] Blood, capillary 07/02/2025 4:19 PM CDT Antionette Valentine DO POINT OF CARE TESTING Final Re sult Performing Organization Address [facility] Co de Phone Number [facility] CLIA# [id number] [place] [address] * (ABNORMAL) LIPID PANEL (11/29/2024 3:00 PM CDT) CHOLESTEROL 145 <200 mg/dL [facility] HDL 53 > OR = 40 mg/dL [facility] TRIGLYCERIDE 179(H) <150 mg/dL [facility] LDL CALCULATED 66 mg/dL (calc) [facility] Comment: Reference range: <100 Desirable range <100 mg/dL for primary prevention; <70 mg/dL for patients with CHD or diabetic patients with > or = 2 CHD risk factors. LDL-C is now calculated using the Cherie calculation, which is a validated novel method providing better accuracy than the Friedewald equation in the estimation of LDL-C. Donell SS et al. MAJOR. 2013;310(19): 7438-3674 (http://education.Tinychat/faq/EXZ449) CHOL/HDL RATIO 2.7 <5.0 (calc) [facility] NON-HDL CHOLESTEROL 92 <130 mg/dL (calc) [facility] Comment: For patients with diabetes plus 1 major ASCVD risk factor, treating to a non-HDL-C goal of <100 mg/dL (LDL-C of <70 mg/dL) is considered a therapeutic option. Test Performed at: [facility] [place] [address] [address] [address] Demetrius Flower Blood 11/29/2024 3:0 0 PM CDT 11/29/2024 3:00 PM CDT Jesus Barraza NP CHEMISTRY ORDERABLES Final Resu lt [facility] [phone] [place] [address] [address] [address] * MICROALBUMIN/CREATININE RATIO, RANDOM UR (11/29/2024 2:56 PM CDT) Creatinine, Urine 76 20 - 320 mg/dL [facility] MICROALBUMIN, URINE 0.2 See Note: mg/dL [facility] Comment: Reference Range: Reference Range [...] within a diagnostic category. Test Performed at: [facility] [id number] [address] Demetrius Flower MD Urine URINE SPECIMEN OBTAINED BY CLEAN CATCH PROCEDURE / Unknown 11/29/2024 2:56 PM CDT 11/29/2024 2:59 PM CDT Jesus Barraza NP URINE ORDERABLES Final Result [facility] [phone] [facility] [address] [address] * COLONOSCOPY REPORT (05/14/2022 1:06 PM CDT) Narrative Procedure Note Veronica Gold MD - 05/14/2022 1:05 PM CDT [facility] Patient Name: Chadd Patrick Procedure Date: [...] bowel preparation was evaluated using the BBPS ([place] Bowel Preparation Scale) with scores of: Right [...] electronically. Number of Addenda: [address]; [place] [address] Veronica Gold MD GI PROCEDURE ORDERABLES Final Re sult from Last 3 Months or Most Recently Relevant to Health Maintenance Insurance [employer] OPEN ACCESS HMO RX [employer] Commercial Care Teams Real Estate Executive Assistant Relationship Specialty Start [place] [id number] [facility] [address] [place] [address] PCP - General Internal Medicine 03/19/21
--- OUTSIDE RECORDS SUMMARY | 2025-08-30 06:11 | XMS_ITS | Clinical Summary ---
Author Organization [facility] D Address [address] [place] [address] Care Team Providers Care Recreational Director Name Role Phone Serge, Antionette Dexter FOSTER Primary Care Provider [phone] Allergies No known active allergies Medications lisinopril [...] (PROVENTIL HFA,VENTOLIN HFA,PROAIR HFA) 90 mcg/actuation inhaler 11/08/19 Active atorvastatin (LIPITOR) 40 mg tablet Take 1 tablet (40 mg total) by mouth daily 03/13/20 20 Active benzonatate (TESSALON) 200 mg capsule Take 1 capsule (200 mg total) by mouth 3 (three) times a day as needed 11/08/19 20 Active blood glucose diagnostic strip Check blood sugar before meals as directed. Three times daily 08/14/20 Active blood-glucose meter kit Check blood sugar before meals as directed 11/08/20 22 Active lancets misc Check blood sugar 3 times a day prior to meals as directed. 12/02/19 23 Active metFORMIN (GLUCOPHAGE) 500 mg tablet 03/13/20 Active Ozempic 1 mg/dose (4 mg/3 mL) pen injector injection INJECT 1MG SUBCUTANEOUSLY EVERY 7 DAYS Active cyclobenzaprin e (FLEXERIL) 10 mg tablet Take 1 tablet (10 mg total) by mouth nightly as needed for muscle spasms 30 tablet 1 08/17/20 25 Active cyclobenzaprin e (FLEXERIL) 10 mg tablet Take 1 tablet (10 mg total) by mouth nightly as needed for muscle spasms 30 tablet 1 01/13/20 25 025 Discontinu ed(Reorder ) predniSONE (DELTASONE) 10 mg tablet Take 1 tablet (10 mg) by mouth 2 (two) times a day for 7 days 14 tablet 08/17/20 25 025 Active Problems Problem Noted Date Diagnosed Date Type 2 diabetes mellitus wit h hyperglycemia, without long-term current use of insulin 09/03/2023 LUQ abdominal pain 12/30/2021 Bronchitis 10/04/2018 Assessment & Plan (10/04/2018 6:50 PM KOSHER DI[employer]ARY SERVICE MANAGER): Take your antibiotic as directed You may [...] Encounters Date Type Department Care Team Description 08/17/2025 Orders Only [facility] Orthopedics and Sports Medicine [address] [facility] [address] [place] [address] Ari Siddiqui PA from Last 3 Months Surgical History Surgery [...] on file Legal Sex Male 11:43 AM KOSHER DI[employer]ARY SERVICE MANAGER Gender Identity Male 10/07/2021 8:00 AM KOSHER DIETARY SERVICE MANAGER Sexual Orientation Straight 10/07/2021 8: 00 AM KOSHER DIETARY SERVICE MANAGER Last Filed Vital Signs Vital Sign Reading [...] Screening 1997 Regular Well Visit/Exam 18-64 1997 eGFR 11/17/2018 11/17/2017 Influenza Vaccine (#1) 2025 , 07/02/2020, 07/04/2019, Additional history exists Hemoglobin A1C 06/01/2025 11/29/2024, 11/0 04/2022, 09/30/2021, Additional history exists DTaP/Tdap/Td Vaccine (3 - Td or Tdap) 08/29/2026 08/29/2016, 08/03/2013, 01/19/2003, Additional history exists Pneumococcal vaccine <65 (3 of 3 - PCV20 or PCV21) 2029 09/23/2021, 06/06/2013, 06/06/2013 HPV Vaccines Aged Out No longer eligi ble based on patient's age to complete this topic Procedures Procedure Name Priority Date/Time Associated Diagnosis Comments EGFR STAT 11/17/2017 4:00 PM KOSHER DIETARY SERVICE MANAGER from Last 3 Months or Most Recently Relevant to Health Maintenance Results * eGFR (11/17/2017 4:00 PM KOSHER DIETARY SERVICE MANAGER) eGFR 100 mL/min/1.7 3 m2 [facility] Comment: Interpretive Data Reference Interval Normal >/= 90 mL/min/1.73m2 Mildly decreased* 60 - 89 mL/min/1.73m2 Mildly to moderately decreased 45 - 59 mL/min/1.73m2 Moderately to severely decreased 30 - 44 mL/min/1.73m2 Severely decreased 15 - 29 mL/min/1.73m2 Kidney Failure < 15 mL/min/1.73m2 *Relative to young adult level If -Mauritanian multiply value by 1.16. Estimated glomerular filtration [...] 2016. Blood specimen (specimen) 11/17/2017 4:00 PM KOSHER DIETARY SERVICE MANAGER 11/17/2017 4:10 PM KOSHER DIETARY SERVICE MANAGER Narrative [facility] - 11/17/2017 4:42 PM KOSHER DIETARY SERVICE MANAGER Jono Frye MD LAB BLOOD ORDERABLES Fi nal Result [facility] [address] Department [place] [address] from Last 3 Months or Most Recently Relevant to Health Maintenance Insurance [email or web address] CIG[employer] Care Teams Recreational Director Relationship Specialty [place] [id number] [facility] [address] [place] [address] PCP - General Internal Medicine 06/27/21
[2025-08-30 06:22] VITALS: BP 143/82; PULSE 85; RESP 18; TEMP 36.9; O2SAT 96
[2025-08-30] MEDS: LACTATED RINGERS 1,000 ML 30 ML IV CONT (06:30)
[2025-08-30] MEDS: ACETAMINOPHEN 500 MG TABLET 1000 MG PO (06:32)
--- NOTE | 2025-08-30 06:43 | PM.HPGS ---
History of Present Illness History of Present Illness Chief complaint: Left Carpal and Cubital Tunnel Release Narrative: Patient seen and examined in pre-operative holding area. No interval change in medical history or symptoms. Patient recalls previous discussion of benefits and alternatives to procedure. Continues to desire to proceed with left endoscopic possible open carpal tunnel release and left cubital tunnel release. Reviewed procedure, post-op expectations and risks including but not limited to bleeding, infection, injury to tendon/nerve/vessel, decreased hand function, stiffness, RSD, no change or worsening of symptoms. I discussed the possible use of assistants and their participation in the case. Patient stated understanding and signed the consent form wishing to proceed. 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 Social History Social History (Updated 05/08/25 @ 10:07 by Janice Shine) Social History: Caffeine-diet soda Years smoked: 15 Smoking status: Former smoker Tobacco type: cigarettes Second hand tobacco smoke exposure: Yes Smoking end date: 02/15/24 Alcohol intake: current Alcohol use details: rarely Substance use: never Substance use type: does not use Living arrangements: with family Spiritual care concerns: No Meds Home Medications and Allergies Home Medications ?Medication ?Instructions ?Recorded ?Confirmed ?Type acetaminophen 500 mg tablet 1,000 mg PO Q6H PRN pain 04/16/25 08/30/25 History atorvastatin 40 mg tablet 40 mg PO DAILY 04/16/25 08/30/25 History bupropion HCl 150 mg 24 hr tablet, 150 mg PO Q48H 04/16/25 08/30/25 History extended release escitalopram oxalate 20 mg tablet 20 mg PO DAILY 04/16/25 08/30/25 History lisinopril 40 mg tablet 40 mg PO DAILY 04/16/25 08/30/25 History melatonin 3 mg capsule 3 mg PO HS PRN sleep 04/16/25 08/30/25 History metformin 1,000 mg tablet 1,000 mg PO BID 04/16/25 08/30/25 History multivitamin (Daily Multi-Vitamin 1 tablet PO DAILY 04/16/25 08/30/25 History tablet) omeprazole 20 mg capsule,delayed 20 mg PO DAILY 04/16/25 08/30/25 History release psyllium husk 0.4 gram capsule 0.4 g PO DAILY PRN constipation 04/16/25 08/30/25 History (Daily Fiber) semaglutide 1 mg/dose (4 mg/3 mL) 1 mg subcut WEEKLY 04/16/25 08/30/25 History subcutaneous pen injector (Ozempic) Held on 08/30/25. Instructions: Resume on 09/04/25. naratriptan 2.5 mg tablet 2.5 mg PO DAILY PRN migraine 08/16/25 08/30/25 History headache hydrocodone 5 mg-acetaminophen 325 1 tablet PO Q8H PRN pain #6 tabs 08/30/25 Rx mg tablet Allergies Allergy/AdvReac Type Severity Reaction Status Date / Time No Known Allergies Allergy Verified 08/30/25 06:20 Vital Signs Vital Signs - 24 hr 08/30/25 06:22 Temperature 36.9 C Pulse Rate 85 Respiratory Rate 18 Blood Pressure 143/82 H Pulse Oximetry 96 Oxygen Delivery Room Air Exam Narrative: unchanged Assessment and Plan Assessment and plan (1) Ulnar neuropathy at elbow: Qualifiers: Laterality: unspecified laterality Qualified Code(s): G56.20 - Lesion of ulnar nerve, unspecified upper limb Code(s): G56.20 - Lesion of ulnar nerve, unspecified upper limb Status: Acute Assessment and Plan: cont as above (2) Bilateral carpal tunnel syndrome: Code(s): G56.03 - Carpal tunnel syndrome, bilateral upper limbs Status: Acute
--- NOTE | 2025-08-30 06:44 | W.PM.PROC2 ---
Procedure Note - Detailed Date of Procedure 08/30/25 Pre-op Diagnosis Left Carpal and Cubital Tunnel syndrome Post-op Diagnosis Same Procedure Performed left ectr and CuTR Surgeon Uriel Javed MD [employer] issac guzman pa-c Anesthesia MAC Description of Procedure INFORMED CONSENT: The patient was seen and examined and marked in the pre-op area.? The patient signed the consent form. PROCEDURE IN DETAIL:The patient taken back to OR on the stretcher in supine position. Time out performed with anesthesia, surgeon and staff agreeing on patient's name site and surgery to be performed SCDs were placed on the lower extremities and inflated. A tourniquet was placed on {left} upper extremity and antibiotics given IV After anesthesia administered sedation I injected {10}cc 1%lido with epi and 0.5% marcaine plain at the operative sites The?{left upper extremity}?was prepped and draped in sterile fashion the??{left upper extremity} was? exsanguinated with Esmarch bandage and tourniquet inflated to 250mmHg I made a transverse incision in the {left} volar distal wrist crease through skin and dermis with 15 blade scalpel.? Littler scissors spread down to antebrachial fascia. A small incision was made in antebrachial fascia allowing access to Carpal tunnel. I proceeded with sequential dilation staying in line with the ring finger and hugging the hook of the hamate.? I then used the synovial elevator to free any adhesions from the underside of the transverse carpal ligament. Next I was able to insert the Microaire endoscopic carpal tunnel device with direct visualization of the transverse fibers on the monitor and proceeded with complete segmental retrograde release of the ligament in its entirety.? I irrigated with normal saline and closed with 4-0 monocryl for dermis and subcuticular closure. I next proceeded with making a longitudinal incision between two heads for flexor carpi ulnaris at end of {left} cubital tunnel with 15 blade scalpel.? Littler scissors were used to spread down to FCU fascia.? An incision was made in FCU fascia and ulnar nerve identified exiting cubital tunnel.? I proceeded with complete retrograde release of the cubital tunnel including 7cm proximal for the intermuscular septum.? The nerve appeared healthy with visible vaso nervorum.? There was no subluxation on full elbow range of motion. ? I irrigated with normal saline and closure with 4-0 monocryl for dermis and subcuticular. The incisions were covered with Dermabond then 4x4s, lanette, and a posterior elbow and volar wrist splint for patient safety, security and comfort and secured with dyan bandages after the tourniquet was let down noting the hand was warm and well perfused.? Patient awaken from anesthesia and transferred to recovery in stable condition Complications - none EBL- 1cc Disposition - home in stable condition Issac Guzman PA-C was essential for positioning, retraction, closure and dressing placement. G Billing Surgery - Charge Forward: Surgery Billing ([id number] same for issac adding )
--- NOTE | 2025-08-30 07:22 | WPDANESEPPF ---
Anes - Initial Pre Proc Eval Procedure: Operation Date: 08/30/25 07:30 Proposed Procedures p Left Endoscopic Carpal Tunnel Release, Possible Open Carpal Tunnel Release - Uriel Javed MD s Left Cubital Tunnel Release - Uriel Javed MD Date/Time: 08/30/25 07:22 Surgeon: Uriel Javed MD Pre Op Diagnosis: Left Carpal and Cubital Tunnel Release Patient Data Age: 45 Gender: M Height: 1.75 m Weight: 121.2 kg Last Vital Signs Temp 98.5 F 08/30/25 06:22 Pulse 85 08/30/25 06:22 Resp 18 08/30/25 06:22 BP 143/82 H 08/30/25 06:22 Pulse Ox 96 08/30/25 06:22 O2 Del Method Room Air 08/30/25 06:22 Allergies Allergy/AdvReac Type Severity Reaction Status Date / Time No Known Allergies Allergy Verified 08/30/25 06:20 Home Medications ?Medication ?Instructions ?Recorded ?Confirmed ?Type acetaminophen 500 mg tablet 1,000 mg PO Q6H PRN pain 04/16/25 08/30/25 History atorvastatin 40 mg tablet 40 mg PO DAILY 04/16/25 08/30/25 History bupropion HCl 150 mg 24 hr tablet, 150 mg PO Q48H 04/16/25 08/30/25 History extended release escitalopram oxalate 20 mg tablet 20 mg PO DAILY 04/16/25 08/30/25 History lisinopril 40 mg tablet 40 mg PO DAILY 04/16/25 08/30/25 History melatonin 3 mg capsule 3 mg PO HS PRN sleep 04/16/25 08/30/25 History metformin 1,000 mg tablet 1,000 mg PO BID 04/16/25 08/30/25 History multivitamin (Daily Multi-Vitamin 1 tablet PO DAILY 04/16/25 08/30/25 History tablet) omeprazole 20 mg capsule,delayed 20 mg PO DAILY 04/16/25 08/30/25 History release psyllium husk 0.4 gram capsule 0.4 g PO DAILY PRN constipation 04/16/25 08/30/25 History (Daily Fiber) semaglutide 1 mg/dose (4 mg/3 mL) 1 mg subcut WEEKLY 04/16/25 08/30/25 History subcutaneous pen injector (Ozempic) Held on 08/30/25. Instructions: Resume on 09/04/25. naratriptan 2.5 mg tablet 2.5 mg PO DAILY PRN migraine 08/16/25 08/30/25 History headache hydrocodone 5 mg-acetaminophen 325 1 tablet PO Q8H PRN pain #6 tabs 08/30/25 Rx mg tablet Laboratory Tests 08/30/25 06:25 POC Capillary Glucose 149 H mg/dl (65-105) Patient hx anesthesia problems: none Family hx anesthesia problems: none Results Review: All pre-operative results and documents have been reviewed as part of the pre-operative evaluation. 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 Social History Social History (Updated 05/08/25 @ 10:07 by Janice Shine) Social History: Caffeine-diet soda Years smoked: 15 Smoking status: Former smoker Tobacco type: cigarettes Second hand tobacco smoke exposure: Yes Smoking end date: 02/15/24 Alcohol intake: current Alcohol use details: rarely Substance use: never Substance use type: does not use Living arrangements: with family Spiritual care concerns: No Anes - Eval Final PreProcedure Day of Procedure 08/30/25 07:22 Heart: regular rate and rhythm Lungs: clear to auscultation Airway: Mallampati scale class IV (sid limited neck mobility) Neurological: alert and oriented Last oral intake: >/= 8 hours ASA classification: III Anesthetic plan: proceed Anesthesia type and monitoring: monitored anesthesia care Results Review: All pre-operative results and documents have been reviewed as part of the pre-operative evaluation. Informed Consent: The patient's anesthetic plan and its attendant risks and benefits were discussed with the patient/family/POA. Questions were solicited and answers provided to the satisfaction of the patient/family/POA.
[2025-08-30] MEDS: ceFAZolin SODIUM 2 GM/20 ML SW SYRINGE IV PUSH (07:31)
[2025-08-30] MEDS: LIDO 1%/EPINEPHRINE 1:100,000 20 ML VIAL (07:45)
[2025-08-30] MEDS: BUPivacaine HCL 0.5% 10 ML AMP (07:45)
[2025-08-30 08:03] VITALS: BP 138/96; PULSE 93; RESP 15; O2SAT 95
[2025-08-30 08:15] VITALS: BP 140/91; PULSE 88; RESP 15; O2SAT 94
[2025-08-30] MEDS: oxyCODONE HCL (*CRX) 5 MG TAB IR PO (08:34)
[2025-08-30 08:35] VITALS: BP 127/86; PULSE 94; RESP 15; O2SAT 95
== END 2025-08-30 08:53 | disposition home or self-care (01) ==
PROVIDERS: Visit Provider Plastic Surgery
PROC: 01N54ZZ Release Median Nerve, Percutaneous Endoscopic Approach (ICD-10-PCS; CPT 29848; principal; 2025-08-30 07:30)
PROC: (CPT 64718; 2025-08-30 07:30)
DX: G56.02 Carpal tunnel syndrome, left upper limb (principal); G56.22 Lesion of ulnar nerve, left upper limb
CPT/HCPCS: 29848; 64718